=== PATIENT | female | born 1980 | race Caucasian/White ===

== ENCOUNTER 2023-11-23 14:03 | Outpatient (REF) | payer BC, SELFPAY ==
[2023-11-26 13:10] LABS: Age Gdln ACOG Testing Note (.); HPV Aptima Negative (Negative); IGP, Aptima HPV, rfx 16/18,45 Note (.)
== END 2023-11-23 14:04 | disposition home or self-care (01) ==
LOC: LAB 14:03
PROVIDERS: Visit Provider Physician Assistant
DX: Z01.419 Encounter for gynecological examination (general) (routine) without abnormal findings (principal)
CPT/HCPCS: 87624; G0145

== ENCOUNTER 2023-12-06 18:04 | Emergency (ER) | payer BC, SELFPAY ==
[2023-12-06 18:12] VITALS: BP 155/87; PULSE 84; TEMP 37.1; O2SAT 98; BMI 39.5
--- NOTE | 2023-12-06 18:25 | CT_ITS ---
[address] [address] Patient Name: CAITY FARR MRN: [id number] date: 1980 Sex: F Assigned Patient Location: ER Current Patient Location: Accession/Order Number: [id number] Exam Date: 12/06/2023 19:00 Report Date: 12/06/2023 19:55 At the request of: EDI LEE Procedure: CT abdomen pelvis wo con EXAM: CT abdomen pelvis wo con; [id number] REASON FOR EXAM: RLQ abd pain TECHNIQUE: Helical CT images of the abdomen and pelvis were obtained without IV contrast. Multiplanar reformats were generated at the scanner. Dose reduction technique used: Automated exposure control and/or adjustment of the mA and/or kV according to patient size and/or use of iterative reconstruction technique. COMPARISON: None. FINDINGS: Note: Compared with a contrast-enhanced CT exam, noncontrast images are relatively insensitive for detection of solid organ and vascular abnormalities. Visualized Chest: No pleural effusion or any significant pulmonary findings. Abdomen: Liver: Mildly enlarged measuring 20.8 cm (normal up to 18 cm). Gallbladder: No calcified gallstones. No acute inflammatory changes. Bile Ducts: No significant biliary ductal dilatation. Pancreas: No ductal dilatation or inflammatory changes. Spleen: Borderline splenomegaly with the spleen measuring 12 cm (normal up to 12 cm). Adrenals: No nodules. Kidneys: -No stones or hydronephrosis. Vascular: No aortic aneurysm. Lymph Nodes: No adenopathy. Abdominal Wall: Small fat-containing right inguinal hernia. Pelvis: An IUD is present in the uterus. Bowel/Peritoneal Cavity/Mesentery: -No bowel obstruction or significant ileus. -No acute inflammatory changes. -No free air or free fluid. -The appendix has been resected. Musculoskeletal: No acute fracture or suspicious osseous lesion. CT/CT abdomen pelvis wo con IMPRESSION: 1. No acute intra-abdominal abnormality demonstrated. 2. An IUD is present in the uterus. 3. Nonspecific mild hepatomegaly and borderline splenomegaly. Electronically authenticated by: ERICA ROMERO Date: 12/06/2023 19:55
--- NOTE | 2023-12-06 18:26 | ED.ABDPAIN1 ---
HPI - Abdominal Pain General Chief Complaint: Abdominal Pain Stated Complaint: SEVERE ABDOMINAL PAIN Time Seen by Provider: 12/06/23 18:05 Source: patient Mode of arrival: walk-in Limitations: no limitations History of Present Illness HPI narrative: Over the last two days she has been experiencing bloating and abdominal cramping like gas . This afternoon, around 430pm, while standing, she suddenly experienced sharp stabbing pain to the RLQ. Pain went from severe to moderate. She took 800mg ibuprofen. No urinary symptoms. No blood in urine or stool recently. She had appendectomy. No prior history of kidney stones or ovarian cysts. LMP about 2 weeks ago. Related Data Home Medications ?Medication ?Instructions ?Recorded ?Confirmed atogepant 30 mg tablet (Qulipta) 30 mg PO DAILY 12/06/23 12/06/23 citalopram 20 mg tablet 20 mg PO DAILY 12/06/23 12/06/23 methylprednisolone 4 mg tablets in 4 mg PO DAILY 12/06/23 12/06/23 a dose pack Allergies Allergy/AdvReac Type Severity Reaction Status Date / Time No Known Drug Allergies Allergy Verified 12/06/23 18:12 Exam Narrative Exam Narrative: Nurses notes and vital signs reviewed and patient is not hypoxic. afebrile General: Well-appearing and in no apparent distress. Skin: Warm, dry, no pallor noted. No rash to abdomen. Eye: Pupils are equal, round and EOMI. No scleral icterus. Cardiovascular: Regular Rate and Rhythm without murmur, gallop or rub. Respiratory: No accessory muscle use or respiratory distress. Lungs are clear to auscultation, no wheezing, rales or rhonchi Back: No midline thoracic or lumbar vertebral tenderness. No CVA tenderness Musculoskeletal: normal ROM, no calf or popliteal tenderness, no lower extremity edema/swelling GI: Abdomen is soft, non-distended. Normal bowel sounds. No abdominal or adnexal masses appreciated. Focal RLQ tenderness to palpation. No rebound, guarding, or rigidity noted. Neurological: A&O x4. No cranial nerve dysfunction observed. No truncal ataxia. Moves all extremities. Sensation intact. Psychiatric: Cooperative and interactive. Normal mood and affect. Constitutional Vital Signs, click to edit/add: Last Vital Signs Temp 98.7 F 12/06/23 18:12 Pulse 84 12/06/23 18:12 Resp 18 12/06/23 18:12 BP 155/87 H 12/06/23 18:12 Pulse Ox 98 12/06/23 18:12 O2 Del Method Room Air 12/06/23 18:12 Course Vital Signs Vital signs: Vital Signs Temperature 98.7 F 12/06/23 18:12 Pulse Rate 84 12/06/23 18:12 Respiratory Rate 18 12/06/23 18:12 Blood Pressure 155/87 H 12/06/23 18:12 Pulse Oximetry 98 12/06/23 18:12 Oxygen Delivery Method Room Air 12/06/23 18:12 Temperature 98.7 F 12/06/23 18:12 Pulse Rate 84 12/06/23 18:12 Respiratory Rate 18 12/06/23 18:12 Blood Pressure 155/87 H 12/06/23 18:12 Pulse Oximetry 98 12/06/23 18:12 Oxygen Delivery Method Room Air 12/06/23 18:12 MDM - Abdominal Pain MDM Narrative Medical decision making narrative: peripheral iv established, blood and urine ordered to be obtained and sent for testing. CT abd/pelvis without contrast ordered to be obtained. She was given IV Zofran, IV Dilaudid and NS IVF. Patient signed out to Dr Trinh at 7pm shift change with labs and CT results pending. Discharge Plan Discharge Chief Complaint: Abdominal Pain Patient Disposition: Still a Patient Prescriptions / Home Meds: No Action methylprednisolone 4 mg tablets,dose pack 4 mg PO DAILY Qulipta 30 mg tablet 30 mg PO DAILY citalopram 20 mg tablet 20 mg PO DAILY Print Language: [place] Islander Referrals: Physician,Non-Staff, MD [Primary Care Provider] - 1 week
[2023-12-06] MEDS: HYDROMORPHONE HCL 0.5 MG/0.5 ML SYRINGE IV (18:48)
[2023-12-06] MEDS: 0.9 % SODIUM CHLORIDE 1,000 ML 999 ML IV (18:48)
[2023-12-06] MEDS: ONDANSETRON PF 4 MG/2 ML VIAL IV (18:48)
[2023-12-06 19:05] LABS: Basophils Percent Auto 0.3 % (0.2-2.0); Eosinophils Absolute Auto 0.1 10^3/uL (0.0-0.7); Eosinophils Percent Auto 1.1 % (0.9-7.0); Hemoglobin 12.1 g/dL (12.0-16.0); Immature Granulocytes Abs Auto 0.03 10^3/uL (0.00-0.03); Immature Granulocytes Pct Auto 0.3 % (0.0-0.5); Lymphocytes Absolute Auto 1.6 10^3/uL (1.2-3.8); Lymphocytes Percent Auto 18.6 % (20.5-60.0); Mean Corpuscular HGB Conc 31.8 g/dL (29.9-35.2); Mean Corpuscular Hemoglobin 28.5 pg (26.7-34.0); Mean Corpuscular Volume 89.4 fL (81.0-99.0); Mean Platelet Volume 9.7 fL (9.5-13.5); Monocytes Absolute Auto 0.6 10^3/uL (0.3-0.8); Monocytes Percent Auto 7.1 % (1.7-12.0); Neutrophils Absolute Auto 6.3 10^3/uL (1.4-6.5); Neutrophils Percent Auto 72.6 % (43.0-75.0); Platelet Count 273 10^3/uL (150-450); Red Blood Count 4.25 10^6/uL (4.20-5.40); Red Cell Distribution Width 12.3 % (11.0-15.0); White Blood Count 8.7 10^3/uL (4.0-11.0)
[2023-12-06 19:07] LABS: Bilirubin Urine NEGATIVE (NEGATIVE); Blood Urine LARGE (NEGATIVE); Clarity Urine CLEAR (CLEAR); Color Urine LT. YELLOW (YELLOW); Glucose Urine UA NEGATIVE (NEGATIVE); Ketones Urine NEGATIVE (NEGATIVE); Leukocyte Esterase Urine SMALL (NEGATIVE); Nitrite Urine NEGATIVE (NEGATIVE); Protein Urine NEGATIVE (NEG/TRACE); Specific Gravity Urine <=1.005 (1.005-1.025); Urobilinogen Urine 0.2 EU/dL (0.2-1.0)
[2023-12-06 19:08] LABS: Urine Microscopic Indicated YES
[2023-12-06 19:19] LABS: Bacteria Urine TRACE #/HPF (NONE SEEN); Mucus Urine NONE SEEN (NONE SEEN); RBC Urine 0-2 #/HPF (0-2); Squamous Epithelial Cell Urine FEW #/LPF (NONE/RARE)
[2023-12-06 19:20] LABS: Amorphous Sediment Urine RARE; Cast Seen? NONE SEEN #/LPF (NONE SEEN); Crystals Seen? None Seen #/HPF (None Seen); Urine Culture Indicated YES
[2023-12-06 19:24] LABS: Alanine Aminotransferase 15 U/L (14-59); Albumin Level 3.5 g/dL (3.4-5.0); Alkaline Phosphatase 100 U/L (46-116); Anion Gap 13.4; Aspartate Amino Transferase 14 U/L (15-37); BUN Creatinine Ratio 19.1; Bilirubin Total 0.3 mg/dL (0.2-1.0); Calcium 8.4 mg/dL (8.5-10.1); Carbon Dioxide 26.7 mmol/L (21.0-32.0); Chloride 106 mmol/L (98-107); Estimated GFR (African America >60 (>=60); Estimated GFR (Non-African Ame >60 (>=60); Globulin 3.6 g/dL; Glucose 98 mg/dL (74-106); Potassium 4.1 mmol/L (3.5-5.1); Sodium 142 mmol/L (136-145); Total Protein 7.1 g/dL (6.4-8.2)
[2023-12-06] MEDS: HYDROCODONE/ACET 5-325 MG TABLET 2 TAB PO (21:15)
== END 2023-12-06 21:17 | disposition home or self-care (01) ==
PROVIDERS: Emergency Medicine; Emergency Provider Internal Medicine
DX: R10.9 Unspecified abdominal pain (principal); Z97.5 Presence of (intrauterine) contraceptive device; R31.29 Other microscopic hematuria; Z79.899 Other long term (current) drug therapy
CPT/HCPCS: 36415; 74176; 80053; 81001; 83690; 85025; 87086; 96374; 96375; 99285; J1170

== ENCOUNTER 2023-12-09 11:07 | Outpatient (OUT) | payer BC, SELFPAY ==
--- NOTE | 2023-12-09 11:10 | US_ITS ---
[address] [address] Patient Name: CAITY FARR MRN: [id number] date: 1980 Sex: F Assigned Patient Location: [facility] Current Patient Location: [facility] Accession/Order Number: [id number] Exam Date: 12/09/2023 11:12 Report Date: 12/09/2023 15:25 At the request of: JOSÉ MCKAY Procedure: US pelvis transvaginal EXAMINATION: US pelvis transvaginal HISTORY: PELVIC PAIN, IUD PLACEMENT COMPARISON: CT abdomen pelvis 12/06/2023 TECHNIQUE: Transabdominal and/or transvaginal sonographic examination was performed as indicated by examination type. FINDINGS: UTERUS: Normal size and appearance. Uterus size: 9.0 x 4.1 x 5.5 cm ENDOMETRIUM: IUD within endometrial cavity. Normal homogeneous appearance. Endometrial thickness: 7 mm RIGHT OVARY: Not seen. LEFT OVARY: Normal size and appearance. Blood flow present within ovary on color Doppler. Ovary size: 2.1 x 1.7 x 2.2 cm CUL-DE-SAC: Unremarkable. No significant free fluid. BLADDER: Unremarkable. OTHER: None. US/US pelvis transvaginal IMPRESSION: 1. No abnormal or suspicious findings. 2. Unremarkable IUD within endometrial cavity. 3. Left ovary could not be identified. No suspicious left adnexal findings. Electronically authenticated by: YADI ARCE Date: 12/09/2023 15:25
== END 2023-12-09 11:08 | disposition home or self-care (01) ==
LOC: NOMS 11:08
PROVIDERS: Visit Provider Obstetrics & Gynecology
DX: R10.2 Pelvic and perineal pain (principal); Z30.431 Encounter for routine checking of intrauterine contraceptive device
CPT/HCPCS: 76830

== ENCOUNTER 2024-02-24 23:47 | Emergency (ER) | payer BC, SELFPAY ==
[2024-02-25 00:01] VITALS: BP 124/83; PULSE 74; TEMP 36.8; O2SAT 98; BMI 39.5
--- NOTE | 2024-02-25 00:09 | ED.FEMALEGU1 ---
HPI - Female Genitourinary General Chief complaint: Vaginal Bleeding Stated complaint: VAGINAL BLEEDING Time Seen by Provider: 02/24/24 23:52 Source: patient Mode of arrival: walk-in Limitations: no limitations History of Present Illness HPI Narrative: 44-year-old female presents for heavy vaginal bleeding. Her period began yesterday which was normal for her but today it became heavy and she has been passing some clots. This is quite unusual for her and has never happened previously. She has no abdominal pain or cramping. No dizziness chest pain or back pain. An IUD was placed in November, about 2 months ago. Related Data Home Medications ?Medication ?Instructions ?Recorded ?Confirmed atogepant 30 mg tablet (Qulipta) 30 mg PO DAILY 12/06/23 02/25/24 citalopram 20 mg tablet 20 mg PO DAILY 12/06/23 02/25/24 Allergies Allergy/AdvReac Type Severity Reaction Status Date / Time No Known Drug Allergies Allergy Verified 02/25/24 00:03 Review of Systems ROS Narrative A ten point review of systems is negative except as noted above. Exam Narrative Exam Narrative: Nurses note and vital signs reviewed and patient is not hypoxic. General: The patient appears well and in no apparent distress. Patient is resting comfortably on cart. Skin: Warm, dry, no pallor noted. There is no rash noted. Head: Normocephalic, atraumatic Eye: Normal conjunctiva, no drainage Ears, Nose, Mouth, and Throat: oral mucosa is moist. Nares patent. Cardiovascular: Regular Rate and Rhythm Respiratory: Patient is in no distress, no accessory muscle use, lungs are clear to auscultation, no wheezing, rales or rhonchi Back: non-tender GI: Soft and nontender Musculoskeletal: The patient has no evidence of calf tenderness, no pitting edema, symmetrical pulses noted bilaterally Neurological: A&O, normal speech Psychiatric: Cooperative Constitutional Vital Signs, click to edit/add: Last Vital Signs Temp 98.3 F 02/25/24 00:01 Pulse 74 02/25/24 00:01 Resp 18 02/25/24 00:01 BP 124/83 02/25/24 00:01 Pulse Ox 98 02/25/24 00:01 O2 Del Method Room Air 02/25/24 00:01 Course Vital Signs Vital signs: Vital Signs Temperature 98.3 F 02/25/24 00:01 Pulse Rate 74 02/25/24 00:01 Respiratory Rate 18 02/25/24 00:01 Blood Pressure 124/83 02/25/24 00:01 Pulse Oximetry 98 02/25/24 00:01 Oxygen Delivery Method Room Air 02/25/24 00:01 Temperature 98.3 F 02/25/24 00:01 Pulse Rate 74 02/25/24 00:01 Respiratory Rate 18 02/25/24 00:01 Blood Pressure 124/83 02/25/24 00:01 Pulse Oximetry 98 02/25/24 00:01 Oxygen Delivery Method Room Air 02/25/24 00:01 MDM - Female Genitourinary MDM Narrative Medical decision making narrative: Hemoglobin is normal and she is not . She is discharged home and will call Dr. Perez in the morning for appropriate follow-up. Treatment diagnosis and follow-up were discussed with the patient. Differential Diagnosis Differential diagnosis: Likely other (Dysfunctional uterine bleeding, miscarriage, anemia) Lab Data Attestation: I reviewed the patient's lab results. Labs: Lab Results 02/25/24 Range/Units 00:14 WBC 10.1 (4.0-11.0) 10^3/uL RBC 4.21 (4.20-5.40) 10^6/uL Hgb 12.0 (12.0-16.0) g/dL Hct 36.7 (36.0-48.0) % MCV 87.2 (81.0-99.0) fL MCH 28.5 (26.7-34.0) pg MCHC 32.7 (29.9-35.2) g/dL RDW 12.6 (11.0-15.0) % Plt Count 246 (150-450) 10^3/uL MPV 9.2 L (9.5-13.5) fL Neut % (Auto) 72.8 (43.0-75.0) % Lymph % (Auto) 17.9 L (20.5-60.0) % [place] % (Auto) 7.6 (1.7-12.0) % Eos % (Auto) 0.9 (0.9-7.0) % Baso % (Auto) 0.4 (0.2-2.0) % Neut # (Auto) 7.3 H (1.4-6.5) 10^3/uL Lymph # (Auto) 1.8 (1.2-3.8) 10^3/uL [place] # (Auto) 0.8 (0.3-0.8) 10^3/uL Eos # (Auto) 0.1 (0.0-0.7) 10^3/uL Baso # (Auto) 0.0 (0.0-0.1) 10^3/uL Abs Immat Gran (auto) 0.04 H (0.00-0.03) 10^3/uL Imm/Tot Granulo (auto) 0.4 (0.0-0.5) % Sodium 142 (136-145) mmol/L Potassium 3.9 (3.5-5.1) mmol/L Chloride 105 (98-107) mmol/L Carbon Dioxide 27.8 (21.0-32.0) mmol/L Anion Gap 13.1 BUN 14.0 (7.0-18.0) mg/dL Creatinine 0.93 (0.55-1.02) mg/dL Est GFR ( Amer) >60 (>=60) Est GFR (Non-Af Amer) >60 (>=60) BUN/Creatinine Ratio 15.1 Glucose 99 (74-106) mg/dL Calcium 8.8 (8.5-10.1) mg/dL Serum HCG, Qual Negative (NEGATIVE) Discharge Plan Discharge Stand Alone Forms: Portal Instructions Chief Complaint: Vaginal Bleeding Clinical Impression: Dysfunctional uterine bleeding Patient Disposition: Home, Self-Care Time of Disposition Decision: 00:52 Condition: Good Mode of Transportation: Private Vehicle Prescriptions / Home Meds: No Action Qulipta 30 mg tablet 30 mg PO DAILY citalopram 20 mg tablet 20 mg PO DAILY Print Language: Gu[place]ian Instructions: Abnormal (Dysfunctional) Uterine Bleeding (ED) Additional Instructions: Call Dr. Perez in the morning Referrals: Vj Perez DO [Physician] - 1 week Physician,Non-Staff, [Primary Care Provider] - 1 week
[2024-02-25 00:22] LABS: Basophils Percent Auto 0.4 % (0.2-2.0); Eosinophils Absolute Auto 0.1 10^3/uL (0.0-0.7); Eosinophils Percent Auto 0.9 % (0.9-7.0); Hematocrit 36.7 % (36.0-48.0); Immature Granulocytes Abs Auto 0.04 10^3/uL (0.00-0.03); Immature Granulocytes Pct Auto 0.4 % (0.0-0.5); Lymphocytes Absolute Auto 1.8 10^3/uL (1.2-3.8); Lymphocytes Percent Auto 17.9 % (20.5-60.0); Mean Corpuscular HGB Conc 32.7 g/dL (29.9-35.2); Mean Corpuscular Hemoglobin 28.5 pg (26.7-34.0); Mean Corpuscular Volume 87.2 fL (81.0-99.0); Mean Platelet Volume 9.2 fL (9.5-13.5); Monocytes Absolute Auto 0.8 10^3/uL (0.3-0.8); Monocytes Percent Auto 7.6 % (1.7-12.0); Neutrophils Absolute Auto 7.3 10^3/uL (1.4-6.5); Neutrophils Percent Auto 72.8 % (43.0-75.0); Platelet Count 246 10^3/uL (150-450); Red Blood Count 4.21 10^6/uL (4.20-5.40); Red Cell Distribution Width 12.6 % (11.0-15.0); White Blood Count 10.1 10^3/uL (4.0-11.0)
[2024-02-25 00:28] LABS: Anion Gap 13.1; BUN Creatinine Ratio 15.1; Calcium 8.8 mg/dL (8.5-10.1); Carbon Dioxide 27.8 mmol/L (21.0-32.0); Chloride 105 mmol/L (98-107); Estimated GFR (African America >60 (>=60); Estimated GFR (Non-African Ame >60 (>=60); Glucose 99 mg/dL (74-106); Potassium 3.9 mmol/L (3.5-5.1); Sodium 142 mmol/L (136-145)
[2024-02-25 00:32] LABS: HCG Qualitative NEGATIVE (NEGATIVE); Internal Control Within Normal Limits
[2024-02-25 00:57] VITALS: BP 135/87; PULSE 72; O2SAT 99
== END 2024-02-25 00:57 | disposition home or self-care (01) ==
PROVIDERS: Emergency Provider Emergency Medicine
DX: N93.8 Other specified abnormal uterine and vaginal bleeding (principal); Z97.5 Presence of (intrauterine) contraceptive device
CPT/HCPCS: 36415; 80048; 84703; 85025; 99283

== ENCOUNTER 2024-05-03 10:38 | Outpatient (OUT) | payer BC, SELFPAY ==
--- NOTE | 2024-05-03 10:39 | US_ITS ---
The [address] [address] Patient Name: CAITY FARR MRN: [id number] date: 1980 Sex: F Assigned Patient Location: [facility] Current Patient Location: [facility] Accession/Order Number: [id number] Exam Date: 05/03/2024 10:45 Report Date: 05/03/2024 12:24 At the request of: JOSÉ MCKAY Procedure: US pelvis transvaginal EXAMINATION: US pelvis transvaginal HISTORY: Menorrhagia with regular cycle N92.0 COMPARISON: Ultrasound pelvis 12/09/2023 TECHNIQUE: Transabdominal and/or transvaginal sonographic examination was performed as indicated by examination type. FINDINGS: UTERUS: Normal size and appearance. Uterus size: 9.4 x 6.1 x 4.0 cm ENDOMETRIUM: Normal homogeneous appearance. IUD within endometrial cavity. Endometrial thickness: 5 mm RIGHT OVARY: Not seen. No suspicious adnexal findings. LEFT OVARY: Not well seen but grossly normal size and appearance. Duplex Doppler demonstrates normal waveform and flow; resistive index 0.7. Ovary size: 3.7 x 2.6 x 2.8 cm CUL-DE-SAC: Unremarkable. No significant free fluid. BLADDER: Unremarkable. OTHER: None. US/US pelvis transvaginal IMPRESSION: 1. IUD within endometrial cavity appearing to be in good position. 2. Otherwise unremarkable uterus and endometrium. Electronically authenticated by: YADI ARCE Date: 05/03/2024 12:24
== END 2024-05-03 10:39 | disposition home or self-care (01) ==
LOC: NOMS 10:39
PROVIDERS: Visit Provider Obstetrics & Gynecology
DX: N92.0 Excessive and frequent menstruation with regular cycle (principal); Z97.5 Presence of (intrauterine) contraceptive device
CPT/HCPCS: 76830

== ENCOUNTER 2024-05-29 13:47 | Outpatient (OUT) | payer BC, SELFPAY ==
--- OUTSIDE RECORDS SUMMARY | 2024-06-01 14:04 | XMS_ITS | CCD ---
Author Organization [facility] Care Team Providers Care Medical Lab Technician Name Role Phone Gillian Matson Unavailable NELY ., DR KUMAR Admitting Unavailable NELY ., DR KUMAR Attending Unavailable FALLON, DR JAYDE Winchester Consulting Unavailable NELY ., DR KUMAR Consulting Unavailable KAILASH JEFFERSON Referring Unavailable DELA CRUZ, ROSALBA J Primary Care Unavailable MOORE, EVELYN N Attending Unavailable DELA CRUZ, ROSALBA J Referring Unavailable DELA CRUZ, ROSALBA J Primary Care Unavailable MOORE, EVELYN N Referring Unavailable DELA CRUZ, ROSALBA J Primary Care Unavailable MOORE, EVLEYN N Attending Unavailable DELA CRUZ, ROSALBA J Referring Unavailable DELA CRUZ, ROSALBA J Primary Care Unavailable ALMITA CRUZ Attending Unavailable JOSÉ PEREZ Attending Unavailable JOSÉ PEREZ Attending Unavailable JOSÉ PEREZ Attending Unavailable FESTUS ROD Attending Unavailable JOSÉ PEREZ Attending Unavailable JOSÉ PEREZ Attending Unavailable Nelly Fishman Primary Care Unavailable José Perez Attending Unavailable José Perez Admitting Unavailable DO Nelly Fishman Primary Care Provider DO José Perez Attending Provider [phone] Medications Current Medications Medication Drug Class(es) Dates Sig (Normalized) Sig (Original) Ajovy (1 source) Ajovy Active amoxicillin 875 mg oral tablet (1 source) Penicillin-class Antibacterial Start: 06-25-2022 take 1 tablet by mouth every twelve hours Amoxicillin 875 MG 1 tablet Orally every 12 hrs for 7 days May, Active citalopram 20 mg oral tablet (2 sources) Serotonin Reuptake Inhibitor take 1 tablet by mouth every twenty-four hours Citalopram Hydrobromide 20 MG 1 tablet Orally Once a day Active Citalopram Sassafras bromide Active 1.5 ml fremanezumab-vfrm 150 mg/ml prefilled syringe (1 source) inject 1.5 mL by subcutaneous injection every month Ajovy 225 MG/1.5ML 1.5 mL Subcutaneous MONTHLY Active meloxicam 15 mg oral tablet (2 sources) Nonsteroidal Anti-inflammatory Drug take 1 tablet by mouth every twenty-four hours Meloxicam 15 MG 1 tablet Orally Once a day Active Meloxicam Active methylPREDNISolone 4 mg oral tablet (1 source) Corticosteroid Start: 08-29-2022 methylPREDNISo lone 4 MG as directed Orally Once a day for 6 days Jul, Active Problems Problem Classification Problem Date Documented Date Episodic/Chronic Immunizations and screening for infectious disease (4 sources) Contact with and (suspected) exposure to other viral communicable diseases; Translations: [Contact with and (suspected) exposure to other viral communicable diseases] Episodic Other connective tissue disease (2 sources) Pain in left foot; Translations: [Pain in left foot] Onset: 02-19-2024 Episodic Other connective tissue disease (1 source) Fibromyalgia; Translations: [Fibromyalgia] Onset: 04-05-2024 Episodic Other screening for suspected conditions (not mental disorders or infectious disease) (4 sources) Encounter for screening mammogram for malignant neoplasm of breast; Translations: [ENC SCR MAMMO MALIG NEOPLASM BREAST] Onset: 11-09-2022 Episodic Other upper respiratory infections (1 source) Streptococcal pharyngitis Episodic Otitis media and related conditions (1 source) Unspecified nonsuppurative otitis media, right ear Episodic Results Test Name Value Interpretation Reference Range Facility CBC AND AUTO DIFFon 04-05-20 24 ABSOLUTE BASOPHIL 0.0 X10E9/L Normal 0.0-0.2 [facility] Comment on above: Performed By: #### C MP, 1987-5, 3016-3, CBCA, 2132-9, 51477-7, 60189-4 #### [facility] ([id number]) [address], [address] [place] [address] ABSOLUTE NEUTROPHIL 5.7 X10E9/L Normal 1.5-6.6 [facility] Comment on above: Performed By: #### C BRIA, 1987-12, 3015-10, CBCA, 2132-04, 59758-6, 69634-7 #### [facility] ([id number]) [address], [address] [place] [address] Basophils/100 WBC (Bld) 0.4 % Normal [facility] Comment on above: Performed By: #### C BRIA, 1987-12, 3015-10, CBCA, 2132-04, 19230-3, 28952-8 #### [facility] ([id number]) [address], [address] [place] [address] Eosinophils (Bld) [#/Vol] 0.0 10*3/uL Normal 0.0-0.4 [facility] Comment on above: Performed By: #### C BRIA, 1987-12, 3015-10, CBCA, 2132-04, 59617-8, 64516-1 #### [facility] ([id number]) [address], [address] [place] [address] Eosinophils/100 WBC (Bld) 0.6 % Normal [facility] Comment on above: Performed By: #### C BRIA, 1987-12, 3015-10, CBCA, 2132-04, 04521-8, 64616-9 #### [facility] ([id number]) [address], [address] [place] [address] Erythrocyte distribution width (RBC) [Ratio] 13.2 % Normal 11.5-15.0 [facility] Comment on above: Performed By: #### C BRIA, 1987-12, 3015-10, CBCA, 2132-04, , 09653-7 #### [facility] ([id number]) [address], [address] [place] [address] Hematocrit (Bld) [Volume fraction] 37.7 % Normal 35-47 [facility] Comment on above: Performed By: #### C BRIA, 1987-12, 3015-10, CBCA, 2132-04, 18957-1, 13407-7 #### [facility] ([id number]) [address], [address] [place] [address] Hemoglobin (Bld) [Mass/Vol] 12.6 g/dL Normal 11.7-15.5 [facility] Comment on above: Performed By: #### C BRIA, 1987-12, 3015-10, CBCA, 2132-04, 21883-1, 65588-5 #### [facility] ([id number]) [address], [address] [place] [address] Lymphocytes (Bld) [#/Vol] 1.3 10*3/uL Normal 1.0-3.5 [facility] Comment on above: Performed By: #### C BRIA, 1987-12, 3015-10, CBCA, 2132-04, 10609-8, 80958-5 #### [facility] ([id number]) [address], [address] [place] [address] Lymphocytes/100 WBC (Bld) 17.9 % Normal [facility] Comment on above: Performed By: #### C BRIA, 1987-12, 3015-10, CBCA, 2132-04, 57218-4, 41476-7 #### [facility] ([id number]) [address], [address] [place] [address] MCH (RBC) [Entitic mass] 28.8 pg Normal 27-34 [facility] Comment on above: Performed By: #### C BRIA, 1987-12, 3015-10, CBCA, 2132-04, 69680-5, 68409-6 #### [facility] ([id number]) [address], [address] [place] [address] MCHC (RBC) [Mass/Vol] 33.3 g/dL Normal 32-36 [facility] Comment on above: Performed By: #### C BRIA, 1987-12, 3015-10, CBCA, 2132-04, 45237-6, 17905-6 #### [facility] ([id number]) [address], [address] [place] [address] MCV (RBC) [Entitic vol] 86 fL Normal 80-100 [facility] Comment on above: Performed By: #### C BRIA, 1987-12, 3015-10, CBCA, 2132-04, 71773-1, 07521-1 #### [facility] ([id number]) [address], [address] [place] [address] Monocytes (Bld) [#/Vol] 0.4 10*3/uL Normal 0-0.9 [facility] Comment on above: Performed By: #### C BRIA, 1987-12, 3015-10, CBCA, 2132-04, 64032-3, 16112-1 #### [facility] ([id number]) [address], [address] [place] [address] Monocytes/100 WBC (Bld) 5.4 % Normal [facility] Comment on above: Performed By: #### C BRIA, 1987-12, 3015-10, CBCA, 2132-04, 54022-9, 54178-2 #### [facility] ([id number]) [address], [address] [place] [address] Neutrophils/100 WBC (Bld) 75.7 % Normal [facility] Comment on above: Performed By: #### C BRIA, 1987-12, 3015-10, CBCA, 2132-04, 65817-3, 02314-2 #### [facility] ([id number]) [address], [address] [place] [address] Platelet mean volume (Bld) [Entitic vol] 7.9 fL Normal 7-12 [facility] Comment on above: Performed By: #### C BRIA, 1987-12, 3015-10, CBCA, 2132-04, 87839-8, 79883-6 #### [facility] ([id number]) [address], [address] [place] [address] Platelets (Bld) [#/Vol] 281 10*3/uL Normal 150-450 [facility] Comment on above: Performed By: #### C BRIA, 1987-12, 3015-10, CBCA, 2132-04, 04670-5, 19575-0 #### [facility] ([id number]) [address], [address] [place] [address] RBC COUNT 4.37 X10E12/L Normal 3.80-5.20 [facility] Comment on above: Performed By: #### C BRIA, 1987-12, 3015-10, CBCA, 2132-04, 64276-6, 89351-1 #### [facility] ([id number]) [address], [address] [place] [address] WBC (Bld) [#/Vol] 7.5 10*3/uL Normal 4.0-11.0 [facility] Comment on above: Performed By: #### C BRIA, 1987-12, 3015-10, CBCA, 2132-04, 78420-3, 21585-2 #### [facility] ([id number]) [address], [address] [place] [address] COMPREHENSIVE METABOLIC PANE Cristian 04-05-2024 Albumin [Mass/Vol] 4.3 g/dL Normal 3.2-5.3 [facility] Comment on above: Performed By: #### C BRIA, 1987-12, 3015-10, CBCA, 2132-04, 86906-4, 30034-9 #### [facility] ([id number]) [address], [address] [place] [address] ALP [Catalytic activity/Vol] 92 U/L Normal 39-130 [facility] Comment on above: Performed By: #### C BRIA, 1987-12, 3015-10, CBCA, 2132-04, 11434-1, 49926-6 #### [facility] ([id number]) [address], [address] [place] [address] ALT [Catalytic activity/Vol] 20 U/L Normal 0-31 [facility] Comment on above: Performed By: #### C BRIA, 1987-12, 3015-10, CBCA, 2132-04, 89546-2, 39394-3 #### [facility] ([id number]) [address], [address] [place] [address] Anion gap [Moles/Vol] 10 mmol/L Normal 5-15 [facility] Comment on above: Performed By: #### C BRIA, 1987-12, 3015-10, CBCA, 2132-04, 35065-3, 80153-7 #### [facility] ([id number]) [address], [address] [place] [address] AST [Catalytic activity/Vol] 21 U/L Normal 0-41 [facility] Comment on above: Performed By: #### C BRIA, 1987-12, 3015-10, CBCA, 2132-04, 42016-0, 41713-6 #### [facility] ([id number]) [address], [address] [place] [address] Bilirubin [Mass/Vol] 0.4 mg/dL Normal 0.3-1.2 [facility] Comment on above: Performed By: #### C BRIA, 1987-12, 3015-10, CBCA, 2132-04, 62171-9, 77370-5 #### [facility] ([id number]) [address], [address] [place] [address] Calcium [Mass/Vol] 9.1 mg/dL Normal 8.5-10.5 [facility] Comment on above: Performed By: #### C BRIA, 1987-12, 3015-10, CBCA, 2132-04, 93436-3, 56440-1 #### [facility] ([id number]) [address], [address] [place] [address] Chloride [Moles/Vol] 103 mmol/L Normal 98-109 [facility] Comment on above: Performed By: #### C BRIA, 1987-12, 3015-10, CBCA, 2132-04, 89433-3, 54373-8 #### [facility] ([id number]) [address], [address] [place] [address] CO2 [Moles/Vol] 27 mmol/L Normal 22-32 [facility] Comment on above: Performed By: #### C BRIA, 1987-12, 3015-10, CBCA, 2132-04, 27158-2, 75996-6 #### [facility] ([id number]) [address], [address] [place] [address] Creatinine [Mass/Vol] 0.85 mg/dL Normal 0.40-1.00 [facility] Comment on above: Result Comment: METH OD TRACEABLE TO IDMS STANDARD Performed By: #### C BRIA, 1987-12, 3015-10, CBCA, 2132-04, 97103-4, 70794-2 #### [facility] ([id number]) [address], [address] [place] [address] GFR/1.73 sq M.predicted among non-blacks MDRD (S/P/Bld) [Vol rate/Area] 87 mL/min/{1.73_m2} Normal >59 [facility] Comment on above: Result Comment: Reported eGFR is based on the CKD-EPI 2020 equation that does not use a race coefficient. Performed By: #### C BRIA, 1987-12, 3015-10, CBCA, 2132-04, 60580-8, 52461-9 #### [facility] ([id number]) [address], [address] [place] [address] Glucose [Mass/Vol] 88 mg/dL Normal 65-99 [facility] Comment on above: Performed By: #### C BRIA, 1987-12, 3015-10, CBCA, 2132-04, 02384-1, 31883-6 #### [facility] ([id number]) [address], [address] [place] [address] Potassium [Moles/Vol] 4.0 mmol/L Normal 3.5-5.0 [facility] Comment on above: Performed By: #### C BRIA, 1987-12, 3015-10, CBCA, 2132-04, 40005-0, 11833-3 #### [facility] ([id number]) [address], [address] [place] [address] Protein [Mass/Vol] 7.1 g/dL Normal 6.0-8.0 [facility] Comment on above: Performed By: #### C BRIA, 1987-12, 3015-10, CBCA, 2132-04, 20941-2, 96383-4 #### [facility] ([id number]) [address], [address] [place] [address] Sodium [Moles/Vol] 140 mmol/L Normal 134-146 [facility] Comment on above: Performed By: #### Shawna FRASER, 1987-12, 3015-10, CBCA, 2132-04, 05039-4, 24071-2 #### [facility] ([id number]) [address], [address] [place] [address] Urea nitrogen [Mass/Vol] 15 mg/dL Normal 5-23 [facility] Comment on above: Performed By: #### Shawna FRASER, 1987-12, 3015-10, CBCA, 2132-04, 94713-7, 46270-1 #### [facility] ([id number]) [address], [address] [place] [address] CRP [Mass/Vol]on 04-05-2024 C REACTIVE PROTEIN 1.0 mg/dL High 0.000-0.744 [facility] Comment on above: Performed By: #### C BRIA, 1987-12, 3, CBCA, 2132-04, 28093-0, 83272-0 #### [facility] ([id number]) [address], [address] [place] [address] ESR Photometric method (Bld) [Velocity]on 04-05-2024 ESR, ERYTHROCYTE SEDIMENTATION RATE 22 mm/h High 0-20 [facility] Comment on above: Performed By: #### C BRIA, 1987-12, 3015-10, CBCA, 2132-04, 55496-3, 14181-4 #### [facility] ([id number]) [address], [address] [place] [address] TSH Qnon 04-05-2024 TSH 1.95 uIU/mL Normal 0.49-4.67 [facility] Comment on above: Performed By: #### Shawna FRASER, 1987-12, 3015-10, CBCA, 2132-04, 37877-0, 85305-1 #### [facility] ([id number]) [address], [address] [place] [address] VITAMIN B12on 04-05-2024 Cobalamin (Vitamin B12) [Mass/Vol] 224 pg/mL Normal 180-914 [facility] Comment on above: Performed By: #### Shawna FRASER, 1987-12, 3015-10, CBCA, 2132-04, 92440-9, 75040-0 #### [facility] ([id number]) [address], [address] [place] [address] Vitamin D+Metabolites [Mass/ Vol]on 04-05-2024 VITAMIN D 25 HYD TOT 18.4 ng/mL Low 30-100 [facility] Comment on above: Result Comment: Vitamin D status 25 [place] Vitamin D Deficiency <20 ng/mL Insufficiency 20-29 ng/mL Sufficiency 30-100 ng/mL Toxicity >100 ng/mL NOTE: A pediatric reference range has not been established by the chemical dependency attendant of this kit. The [place] [employer] recommends a Vitamin D level of = or >20ng/mL in infants and children. Performed By: #### C MP, 1987-, 3016-3, CBCA, 2132-04, 76585-6, 39995-8 #### [facility] ([id number]) [address] [place] [address], [address] [place] [address] B. burgdorferi IgG+IgM Qn (S )on 02-19-2024 LYME TOTAL <0.2 Normal <0.9 [facility] Comment on above: Result Comment: Interpretation-------- <0.9 Negative 0.9 - 1.0 Equivocal >1.0 Positive No serological evidence of Borrelia infection.A non-reactive result does not exclude the possibility of Borrelia infection and cannot exclude early infection with B.burgdorferi. If Lyme borreliosis is suspected, a second sample should be collected and tested 2-4 weeks later. Performed By: #### C BCA, 31512-8, 84952-9, 1987-12, 3084-1, 91118-3, 49512-0, 20802-9 #### [facility] ([id number]) [address] [place] [address], [address] [place] [address] CBC AND AUTO DIFFon 02-19-20 24 ABSOLUTE BASOPHIL 0.0 X10E9/L Normal 0.0-0.2 [facility] Comment on above: Performed By: #### C EJ, 13524-2, 46474-0, 1987-12, 308-1, 94018-3, 24825-6, 18433-1 #### [facility] ([id number]) [address], [address] [place] [address] ABSOLUTE NEUTROPHIL 4.1 X10E9/L Normal 1.5-6.6 [facility] Comment on above: Performed By: #### Shawna PAGAN, 93280-9, , 1987-12, 3083-, 69755-4, 11018-4, 84437-1 #### [facility] ([id number]) [address], [address] [place] [address] Basophils/100 WBC (Bld) 0.3 % Normal [facility] Comment on above: Performed By: #### Shawna PAGAN, 71091-3, , 1987-12, 3083-, 30233-1, 22253-7, 87385-9 #### [facility] ([id number]) [address], [address] [place] [address] Eosinophils (Bld) [#/Vol] 0.1 10*3/uL Normal 0.0-0.4 [facility] Comment on above: Performed By: #### Shawna PAGAN, 62211-5, 87278-8, 1987-12, 3083-, 15322-1, 30027-3, 74549-2 #### [facility] ([id number]) [address], [address] [place] [address] Eosinophils/100 WBC (Bld) 1.1 % Normal [facility] Comment on above: Performed By: #### Shawna PAGAN, 79743-6, 73278-1, 1987-12, 308-, 19287-9, 96164-0, 56125-9 #### [facility] ([id number]) [address], [address] [place] [address] Erythrocyte distribution width (RBC) [Ratio] 13.4 % Normal 11.5-15.0 [facility] Comment on above: Performed By: #### Shawan PAGAN, 01593-0, 13033-8, 1987-12, 3083-, 12717-7, 60271-8, 45267-1 #### [facility] ([id number]) [address], [facility] [address] [place] [address] Hematocrit (Bld) [Volume fraction] 39.2 % Normal 35-47 [facility] Comment on above: Performed By: #### Shawna PAGAN, 26295-2, , 1987-12, 3083-, 73631-7, 78213-9, 19148-0 #### [facility] ([id number]) [address] [place] [address] Hemoglobin (Bld) [Mass/Vol] 12.9 g/dL Normal 11.7-15.5 [facility] Comment on above: Performed By: #### Shawna PAGAN, 89543-3, , 1987-12, 3083-08, 91837-0, 81130-6, 67912-8 #### [facility] ([id number]) [address] [address] Lymphocytes (Bld) [#/Vol] 1.3 10*3/uL Normal 1.0-3.5 [facility] Comment on above: Performed By: #### Shawna PAGAN, 80386-0, , 1987-12, 3083-, 73845-5, 42094-1, 62392-4 #### [facility] ([id number]) [address] [place] [address] Lymphocytes/100 WBC (Bld) 21.8 % Normal [facility] Comment on above: Performed By: #### Shawna PAGAN, 63235-9, , 1987-12, 3084-1, 10033-6, 39676-6, 52177-2 #### [facility] ([id number]) [address], [address] [place] [address] MCH (RBC) [Entitic mass] 28.7 pg Normal 27-34 [facility] Comment on above: Performed By: #### Shawna PAGAN, 07066-3, 16568-0, 1987-12, 3083-, 61862-2, 92825-2, 94841-1 #### [facility] ([id number]) [address], [address] [place] [address] MCHC (RBC) [Mass/Vol] 33.0 g/dL Normal 32-36 [facility] Comment on above: Performed By: #### Shawna PAGAN, 82735-6, 20977-7, 1987-12, 3083-, 63342-3, 05729-0, 81362-1 #### [facility] ([id number]) [address], [address] [place] [address] MCV (RBC) [Entitic vol] 87 fL Normal 80-100 [facility] Comment on above: Performed By: #### Shawna PAGAN, 05009-6, 19127-6, 1987-12, 3083-, 60188-7, 88793-5, 37584-9 #### [facility] ([id number]) [address], [address] [place] [address] Monocytes (Bld) [#/Vol] 0.4 10*3/uL Normal 0-0.9 [facility] Comment on above: Performed By: #### Shawna PAGAN, 69339-2, 71096-0, 1987-12, 3083-, 81188-0, 89725-2, 25804-0 #### [facility] ([id number]) [address], [address] [place] [address] Monocytes/100 WBC (Bld) 6.7 % Normal [facility] Comment on above: Performed By: #### Shawna PAGAN, 21109-1, 54223-4, 1987-12, 3084-1, 20950-6, 96644-9, 39049-5 #### [facility] ([id number]) [address], [address] [place] [address] Neutrophils/100 WBC (Bld) 70.1 % Normal [facility] Comment on above: Performed By: #### Shawna PAGAN, 72305-4, 13014-8, 1987-12, 308-1, 75292-3, 77452-3, 67355-8 #### [facility] ([id number]) [address], [address] [place] [address] Platelet mean volume (Bld) [Entitic vol] 8.2 fL Normal 7-12 [facility] Comment on above: Performed By: #### Shawna PAGAN, 04110-2, 71764-2, 1987-12, 308-1, 88244-7, 21366-1, 51406-0 #### [facility] ([id number]) [address], [address] [place] [address] Platelets (Bld) [#/Vol] 232 10*3/uL Normal 150-450 [facility] Comment on above: Performed By: #### Shawna PAGAN, 32140-0, 39213-2, 1987-12, 308-1, 85864-2, 40734-1, 34690-2 #### [facility] ([id number]) [address], [address] [place] [address] RBC COUNT 4.51 X10E12/L Normal 3.80-5.[address] [facility] Comment on above: Performed By: #### Shawna PAGAN, 58049-1, 06723-9, 1987-12, 3084-1, 14859-5, 15267-8, 06905-2 #### [facility] ([id number]) [address], [address] [place] [address] WBC (Bld) [#/Vol] 5.9 10*3/uL Normal 4.0-11.0 [facility] Comment on above: Performed By: #### Shawna PAGAN, 44033-2, 41606-8, 1987-12, 308-1, 67623-7, 38451-4, 70985-1 #### [facility] ([id number]) [address], [address] [place] [address] CRP [Mass/Vol]on 02-19-2024 C REACTIVE PROTEIN 0.9 mg/dL High 0.000-0.744 [facility] Comment on above: Performed By: #### Shawna PAGAN, 06564-7, 76578-4, 1987-12, 3083-1, 33995-9, 23461-0, 57402-0 #### [facility] ([id number]) [address] [place] [address] ESR Photometric method (Bld) [Velocity]on 02-19-2024 ESR, ERYTHROCYTE SEDIMENTATION RATE 26 mm/h High 0-20 [facility] Comment on above: Performed By: #### Shawna PAGAN, 73231-0, 17067-3, 1987-12, 3083-1, 31652-0, 76306-7, 26317-7 #### [facility] ([id number]) [address], [address] [place] [address] HLA-B27 FC Ql (Bld/Tiss)on 0 02-19-2024 HLA-B27 TYPING Positive Normal [facility] Comment on above: Performed By: #### Shawna PAGAN, 99539-1, 24809-0, 1987-12, 3083-1, 77410-7, 60334-8, 37868-9 #### [facility] ([id number]) [address] [place] [address] Nuclear Ab IA Ql (S)on 02-18 LANIE Screen w/reflex Negative Normal NEG [facility] Comment on above: Result Comment: Testing performed using multiplex flow immunoassay. Eleven different antigens associated with systemic autoimmune diseases (dsDNA,Sm,Sm/PELLETIZER TENDER,PELLETIZER TENDER,Chromatin, SSA,SSB,Nikki-1,Scl70,Ribo P,Centromere B) are included in this screening test. Performed By: #### C EJ, 39242-7, 28247-9, 1987-, 308-1, 30999-9, 46060-4, 82656-7 #### [facility] ([id number]) [address], [address] [place] [address] Rheumatoid factor Nephelomet ry Qn (S)on 02-19-2024 RHEUMATOID FACTOR <10 Normal <20 [facility] [facility] Comment on above: Performed By: #### Shawna PAGAN, 92905-3, 45899-0, 1987-12, 3083-1, 49383-1, 18846-0, 74487-4 #### [facility] ([id number]) [address], [address] [place] [address] URIC ACIDon 02-19-2024 Urate [Mass/Vol] 5.5 mg/dL Normal 2.6-7.2 [facility] Comment on above: Performed By: #### Shawna PAGAN, 34373-4, 17804-9, 1987-12, 3084-1, 75686-1, 57241-1, 45673-3 #### [facility] ([id number]) [address], [address] [place] [address] MG MAMM SCREEN 3D VANDANA CADon 11-09-2022 MG MAMM SCREEN 3D VANDANA CAD Patient: CAITY FARR Exam Date: 11/09/2022 : 1980 Gender:F Ordering : DR JOSÉ PEREZ . Admission #: [id number] Family : Order #: [id number] CLICK HERE TO VIEW EXAM RADIOLOGY REPORT PROCEDURE: MAMMOGRAM SCREENING 3D BILATERAL CAD COMPARISON: MG MAMM SCREEN 3D VANDANA CAD, 08/15/2021. INDICATIONS: Screening mammography Calculator Name NCI Breast Cancer Risk Assessment Tool 5 Year Breast Cancer Risk Not Reported. Lifetime Breast Cancer Risk Not Reported. Personal Breast Cancer No Personal Ovarian Cancer No Treatments None Family Cancers None LOCATION: [facility] BREAST COMPOSITION: Almost entirely fatty. FINDINGS: DIAGNOSTIC CATEGORY 1--NEGATIVE. NO CHANGE FROM COMPARISON ASSESSMENT. Scattered benign-appearing calcifications are present. Scattered benign-appearing lymph nodes are present. RIGHT BREAST: No significant suspicious finding. LEFT BREAST: No significant suspicious finding. RECOMMENDATIONS: ROUTINE MAMMOGRAM AND CLINICAL EVALUATION IN 12 MONTHS. PLEASE NOTE: A NORMAL MAMMOGRAM DOES NOT EXCLUDE THE POSSIBILITY OF BREAST CANCER. A CLINICALLY SUSPICIOUS PALPABLE LUMP SHOULD BE BIOPSIED. Dictated by: Jayde Valles MD on 11/09/2022 at 13:55 Approved by: Jayde Valles MD on 11/09/2022 at 13:56 Normal [facility] COVID/FLU/RSV RT-PCRon 08-29 SARS-CoV-2 (COVID-19) RNA BERNABE+probe Ql (Unsp spec) Negative [facility] Other COVID/FLU/RSV RT-PCR Negative [facility] Other Quick Strepon 06-25-2022 S. pyogenes Org specific cx Ql (Throat) Positive [facility] Other Quick Strep [facility] Other SARS-CoV-2 (COVID-19) RNA NA A+probe Ql (Resp)on 06-25-2022 SARS-CoV-2 (COVID-19) RNA BERNABE+probe Ql (Unsp spec) Negative [facility] Other MRI Foot w/o Lefton 06-18-20 MRI Foot w/o Left CLINICAL HISTORY: Heel and arch pain for 1 year. Plantar fasciitis. Inflammatory pain of left heel. COMPARISON: Radiographs 12/24/2021 TECHNIQUE: MRI of the hindfoot was performed without contrast. FINDINGS: The Achilles tendon is intact. Thickening of the medial cord plantar fascia with thickness measuring up to 7 mm. Mild adjacent soft tissue edema. Small plantar calcaneal enthesophyte. Musculature appears normal. Tibialis posterior, flexor digitorum longus, and flexor hallucis longus tendons are intact. Peroneus longus and brevis tendons are intact. Extensor tendons are intact. The anterior and posterior tibiofibular ligaments are intact. The anterior talofibular ligament, calcaneofibular ligament, and posterior talofibular ligament are intact. Superficial and deep fibers of the deltoid ligament are intact. Spring ligament is intact. Sinus tarsi fat is preserved. Lisfranc ligament appears intact. No acute fracture or evidence of stress reaction. No well-defined or measurable articular cartilage defect or subchondral bone marrow edema of the tibial plafond, talar dome, or subtalar joint. IMPRESSION: Findings compatible with plantar fasciitis. Report reported and signed by Tanvir Ochoa on 06/18/2022 1353 Normal [facility] Vital Signs Date Time Vital Sign Value Performing Clinician Facility 08-29-2022 12:45-0500 Body height 172.72 cm Gillian Matson Other [facility] Other 08-29-2022 12:45-0500 Body mass index (BMI) [Ratio] 39.56 kg/m2 Gillian Matson Other [facility] Other 08-29-2022 12:45-0500 Body temperature 98.6 [degF] Gillian Matson Other [facility] Other 08-29-2022 12:45-0500 Body weight 118.03 kg Gillian Matson Other [facility] Other 08-29-2022 12:45-0500 Diastolic blood pressure 67 mm[Hg] Gillian Matson Other [facility] Other 08-29-2022 12:45-0500 Respiratory rate 18 /min Gillian Matson Other [facility] Other 08-29-2022 12:45-0500 SaO2% (BldA) [Mass fraction] 98 % Gillian Matson Other [facility] Other 08-29-2022 12:45-0500 Systolic blood pressure 116 mm[Hg] Gillian Matson Other [facility] Other 06-25-2022 11:00-0400 Body height 172.72 cm Gillian Matson Other [facility] Other 06-25-2022 11:00-0400 Body mass index (BMI) [Ratio] 36.49 kg/m2 Gillian Matson Other [facility] Other 06-25-2022 11:00-0400 Body temperature 100.1 [degF] Gillian Matson Other [facility] Other 06-25-2022 11:00-0400 Body weight 108.86 kg Gillian Matson Other [facility] Other 06-25-2022 11:00-0400 Respiratory rate 18 /min Gillian Matson Other [facility] Other 06-25-2022 11:00-0400 SaO2% (BldA) [Mass fraction] 99 % Gillian Matson Other [facility] Other Encounters Encounter Date Encounter Type Care Provider Facility Start: 05-29-2024 End: 05-29-2024 ambulatory Nelly Fishman Facility:[facility] Start: 05-29-2024 End: 05-29-2024 Departed Referred DO Nelly Fishman Work Phone: [facility] Start: 05-29-2024 End: 05-29-2024 ambulatory JOSÉ NELY Not Available Start: 05-08-2024 End: 05-08-2024 ambulatory JOSÉ NELY Not Available Start: 05-04-2024 End: 05-04-2024 ambulatory [facility] Start: 04-05-2024 End: 04-05-2024 ambulatory [facility] Start: 04-05-2024 End: 04-05-2024 ambulatory [facility] Start: 02-29-2024 End: 02-29-2024 ambulatory JSOÉ NELY Not Available Start: 02-28-2024 End: 02-28-2024 ambulatory JOSÉ NELY Not Available Start: 02-19-2024 End: 02-19-2024 ambulatory KAILASH Elvia [facility] Start: 12-01-2023 End: 12-01-2023 ambulatory JOSÉ NELY Not Available Start: 11-23-2023 End: 11-23-2023 ambulatory ALMITA CRUZ Not Available Start: 11-09-2022 End: 11-10-[address] JOSÉ PEREZ . Facility: Start: 08-29-2022 End: 08-29-2022 ambulatory Gillian Dano Other [facility] Other Start: 08-29-2022 Office outpatient visit 15 minutes Gillian Matson [facility] Start: 06-25-2022 End: 06-25-2022 ambulatory Gillian Dano Other [facility] Other Start: 06-25-2022 Office outpatient visit 25 minutes Gillian Dano [facility] Payers Date Payer Category Payer Self-pay 1980 Unknown [id number] 2.16.84 [id number] 1980 Unknown [id number] 2.16.8 [id number] 1980 Unknown [id number] 2.16.8 [id number] 1980 Unknown [id number] 2.16.8 [id number] 1980 Unknown [id number] 2.16.8 [id number] 1980 Unknown [id number] 2.16.84 0.1.158277.3.579.2.1258 1980 Unknown [id number] 2.16.84 0.1.640312.3.579.2.1258 1980 Unknown [id number] 2.16.84 0.1.099062.3.579.2.1258 1980 Unknown [id number] 2.16.84 0.1.871198.3.579.2.1258 1980 Unknown [id number] 2.16.84 0.1.974678.3.579.2.1258 1980 Unknown [id number] 2.16.84 0.1.473864.3.579.2.1258 1980 Unknown [id number] 2.16.84 [id number] 1958 [facility] [id number] Social History Date Type Detail Facility Sex Assigned At [facility] Other Start: 1980 Sex Assigned At Female F [facility] Evaluation note 08-29-2022 Note Date & Type Note Facility 08-29-2022 Evaluation note Encounter Date Diagnosis Assessment Notes Jul, Contact with and (suspected) exposure to other viral communicable diseases (ICD-10 - Z20.828) Jul, Right otitis media with effusion (ICD-10 - H65.91) take medication as directed. Middle ear fluid can be caused from allergies, traveling or viral infections. It may linger. Follow up with PCP if symptoms persist [facility] Other Evaluation note 06-25-2022 Note Date & Type Note Facility 06-25-2022 Evaluation note Encounter Date Diagnosis Assessment Notes May, Contact with and (suspected) exposure to other viral communicable diseases (ICD-10 - Z20.828) May, Strep pharyngitis (ICD-10 - J02.0) Symptoms presented in office today indicate Strep Throat. Take medications as directed. Saltwater gargles may help with pain and disrupts bacteria and viral infections. Continue tylenol/ibu for general discomfort. Encourage fluids. Symptoms should improve within the next 4-7 days. [facility] Other Evaluation note Note Date & Type Note Facility Evaluation note No assessment information availa [facility] Work Phone: History general Narrative - Reported Note Date & Type Note Facility History general Narrative - Reported Type Surgical History appendectomy Hospitalization History childbirth x2 [facility] Other History general Narrative - Reported Note Date & Type Note Facility History general Narrative - Reported Type Medical History MIGRAINES Medical History PLANTAR FACIITIS Medical History DEPRESSION Surgical History appendectomy Hospitalization History childbirth x2 [facility] Other Summary Purpose Family History Relationship Condition Age at Onset Recorded Date/T elia father Diabetes mellitus Unknown Heart disease Unknown History of stroke Unknown Advance Directives No Advanced Directives Records FoundNo Advanced Directives Records FoundNo Advanced Directives Records FoundNo Advanced Directives Records FoundNo Advanced Directives Records FoundNo Advanced Directives Records Found Additional Source Comments INFORMATION SOURCE (unrecogn ized section and content) DATE CREATED AUTHOR 06/22/2022 [facility] DATE CREATED AUTHOR AUTHOR'S ORGANIZ ATION 11/16/2022 [facility] DATE CREATED AUTHOR AUTHOR'S ORGANIZ ATION 02/22/2024 [facility] DATE CREATED AUTHOR AUTHOR'S ORGANIZ ATION 05/06/2024 [facility] DATE CREATED AUTHOR AUTHOR'S ORGANIZ ATION 05/30/2024 [facility] EPIC DATE CREATED AUTHOR AUTHOR'S ORGANIZ ATION 06/01/2024 [facility] REASON FOR VISIT (unrecogniz ed section and content) FEVER B/A DIZZINESSCONGESTIO N COUGH Care Teams (unrecognized sec tion and content) Team Status: Active Member Role Status Dates Nelly Fishman DO Primary Care Provider Active Team Status: Inactive Member Role Status Dates Nelly Fishman DO Primary Care Provider Active Start: May 29, 2024 End: May 29, 2024 José Perez DO Attending Provider Active Start : May 29, 2024 End: May 29, 2024 Goals (unrecognized section and content) Goals may be documented in a n alternate section FOR RECORDS PERTAINING TO PATIENTS WHO ARE OR HAVE BEEN ENROLLED IN A CHEMICAL DEPENDENCY/SUBSTANCEABUSE PROGRAM, SOME INFORMATION MAY BE OMITTED. This clinical summary was aggregated from multiple sources. Caution should be exercised in using it in the provision of clinical care. This summary normalizes information from multiple sources, and as a consequence, information in this document may materially change the coding, format and clinical context of patient data. In addition, data may be omitted in some cases. CLINICAL DECISIONS SHOULD BE BASED ON THE PRIMARY CLINICAL RECORDS. [facility] [employer] provides no warranty or guarantee of the accuracy or completeness of information in this document.
== END 2024-05-29 13:48 ==
LOC: LAB 06-01 13:48
PROVIDERS: Visit Provider Obstetrics & Gynecology
DX: N92.0 Excessive and frequent menstruation with regular cycle (principal)
CPT/HCPCS: 88305

== ENCOUNTER 2024-06-08 12:09 | Outpatient (OUT) | payer BC, SELFPAY ==
--- OUTSIDE RECORDS SUMMARY | 2024-06-08 12:12 | XMS_ITS | CCD ---
Author Organization [facility] Care Team Providers Care Title Agent Name Role Phone Gillian Matson Unavailable NELY ., DR KUMAR Admitting Unavailable NELY ., DR KUMAR Attending Unavailable [place], DR JAYDE Winchester Consulting Unavailable NELY ., [...] PEREZ Attending Unavailable JOSÉ PEREZ Attending Unavailable DO Nelly Fishman Primary Care Provider [phone] DO José Perez Attending Provider Nelly Fishman Primary Care Unavailable José Perez Attending Unavailable José Perez Admitting Unavailable Medications Current Medications Medication Drug Class(es) Dates [...] tablet Orally Once a day Active Citalopram Natoma bromide Active 1.5 ml fremanezumab-vfrm 150 mg/ml [...] Results Test Name Value Interpretation Reference Range [facility] 05-29-2024 L Specimen: [id number] Received: 05/30/24 Status: ERIN Faye Num: [id number] Spec Type: Surgical Subm Anh Perez Tissues: A Endometrium - Biopsy (EMBX) Procedures: HE/2, Gross/Micro L4 Age/ Patient Sex Location Account Attending Physician Caity Woodward 44/F [place] [id number] José Perez SPEC NUM: [id number] RECD: 05/30/24 STATUS: ERIN FAYE NUM: [id number] RAMONA: 05/29/24- SUBM DR: José Perez ENTERED: 05/30/[address] [facility] [address]: Shivam Elizalde SPEC TYPE: Surgical DEPT: AURE ROWLEY ENTERED BY: [id number] RECV BY: [id number] ORDERED: PREETHI Gross/Micro L4 ORDERED: STEPHANIEIris Gross/Micro L4 Pathological Diagnosis Endometrial biopsy: -Several small to 1 elongated strips of the slightly disordered proliferative endometrium of the early phase type without hyperplasia or atypia identified Clinical Information Menorrhagia N92.0 Gross Description The specimen is received in formalin with the patient's name and endometrial biopsy and consists of multiple patricio-pink soft tissue fragments measuring 1.5 x 1.5 x 0.3 cm in aggregate. The specimen is filtered entirely submitted in cassette A1. Microscopic Description Microscopic examinations are performed supporting the above interpretation Specimen: [id number] Received: 05/30/24 Status: ERIN Faye Num: [id number] Spec Type: Surgical Subm Dr: José Perez Tissues: A Endometrium - Biopsy (EMBX) Procedures: PREETHI, Gross/Micro L4 Patient: Caity Woodward [id number] (Continued) Specimen: [id number] Received: 05/30/24 (Continued) Signed (signature on file) Anthony Riley MD 06/01/24 1101 Specimen: [id number] Received: 05/30/24 Status: ERIN Faye Num: [id number] Spec Type: Surgical Subm Dr: José Perez Tissues: A Endometrium - Biopsy (EMBX) Procedures: STEPHANIE/Rogers Simmons/Marivel L4 Patient: Caity Woodward [id number] (Continued) Specimen: [id number] Received: 05/30/24 (Continued) CPT Codes 91730 Specimen: [id number] Received: 05/30/24 Status: ERIN Faye Num: [id number] Spec Type: Surgical Subm Dr: José Perez Tissues: A Endometrium - Biopsy (EMBX) Procedures: HE/2, Gross/Micro L4 Patient: Caity Woodward [id number] (Continued) Signed (signature on file) Anthony Riley MD 06/01/24 1101 Normal [facility] CBC AND AUTO DIFFon 04-05-20 24 ABSOLUTE BASOPHIL 0.0 X10E9/L Normal 0.0-0.2 [facility] Comment on above: Performed By: #### C MP, 1987-5, 3016-3, CBCA, 21310-08, 17427-3, 85998-5 #### [facility] ([id number]) [address], [address] [place] [address] ABSOLUTE NEUTROPHIL 5.7 X10E9/L Normal 1.5-6.6 [facility] Comment on above: Performed By: #### C BRIA, 1987-12, 3015-10, CBCA, 2132-04, , 22302-4 #### [facility] ([id number]) [address], [address] [place] [address] Basophils/100 WBC (Bld) 0.4 % Normal [facility] Comment on above: Performed By: #### C BRIA, 1987-12, 3015-10, CBCA, 2132-04, , 19164-2 #### [facility] ([id number]) [address], [address] [place] [address] Eosinophils (Bld) [#/Vol] 0.0 10*3/uL Normal 0.0-0.4 [facility] Comment on above: Performed By: #### C BRIA, 1987-12, 3015-10, CBCA, 2132-04, , 46190-5 #### [facility] ([id number]) [address], [address] [place] [address] Eosinophils/100 WBC (Bld) 0.6 % Normal [facility] Comment on above: Performed By: #### C BRIA, 1987-12, 3015-10, CBCA, 2132-04, , 03255-0 #### [facility] ([id number]) [address], [address] [place] [address] Erythrocyte distribution width (RBC) [Ratio] 13.2 % Normal 11.5-15.0 [facility] Comment on above: Performed By: #### C BRIA, 1987-12, 3015-10, CBCA, 2132-04, , 34670-6 #### [facility] ([id number]) [address], [address] [place] [address] Hematocrit (Bld) [Volume fraction] 37.7 % Normal 35-47 [facility] Comment on above: Performed By: #### C BRIA, 1987-12, 3015-10, CBCA, 2132-04, , 19361-1 #### [facility] ([id number]) [address] [address] Hemoglobin (Bld) [Mass/Vol] 12.6 g/dL Normal 11.7-15.5 [facility] Comment on above: Performed By: #### C BRIA, 1987-12, 3015-10, CBCA, 2132-04, , 08225-3 #### [facility] ([id number]) [address] [address] Lymphocytes (Bld) [#/Vol] 1.3 10*3/uL Normal 1.0-3.5 [facility] Comment on above: Performed By: #### C BRIA, 1987-12, 3015-10, CBCA, 2132-04, 14782-0, 13146-2 #### [facility] ([id number]) [address] [address] Lymphocytes/100 WBC (Bld) 17.9 % Normal [facility] Comment on above: Performed By: #### C BRIA, 1987-12, 3015-10, CBCA, 2132-04, , 87573-0 #### [facility] ([id number]) [address] [address] MCH (RBC) [Entitic mass] 28.8 pg Normal 27-34 [facility] Comment on above: Performed By: #### C BRIA, 1987-12, 3015-10, CBCA, 2132-04, 15532-5, 34569-5 #### [facility] ([id number]) [address], [address] [place] [address] MCHC (RBC) [Mass/Vol] 33.3 g/dL Normal 32-36 [facility] Comment on above: Performed By: #### C BRIA, 1987-12, 3015-10, CBCA, 2132-04, , 65531-2 #### [facility] ([id number]) [address], [address] [place] [address] MCV (RBC) [Entitic vol] 86 fL Normal 80-100 [facility] Comment on above: Performed By: #### C BRIA, 1987-12, 3015-10, CBCA, 2132-04, 65665-8, 41768-3 #### [facility] ([id number]) [address], [address] [address] Monocytes (Bld) [#/Vol] 0.4 10*3/uL Normal 0-0.9 [facility] Comment on above: Performed By: #### C BRIA, 1987-12, 3015-10, CBCA, 2132-04, , 39239-8 #### [facility] ([id number]) [address], [address] [address] Monocytes/100 WBC (Bld) 5.4 % Normal [facility] Comment on above: Performed By: #### C BRIA, 1987-12, 3015-10, CBCA, 2132-04, 21322-7, 42997-6 #### [facility] ([id number]) [address] [address] Neutrophils/100 WBC (Bld) 75.7 % Normal [facility] Comment on above: Performed By: #### C BRIA, 1987-12, 3015-10, CBCA, 2132-04, 39015-7, 18179-8 #### [facility] ([id number]) [address], [address] [place] [address] Platelet mean volume (Bld) [Entitic vol] 7.9 fL Normal 7-12 [facility] Comment on above: Performed By: #### Shawna FRASER, 1987-12, 3, CBCA, 2132-04, 51009-1, 91177-2 #### [facility] ([id number]) [address], [address] [place] [address] Platelets (Bld) [#/Vol] 281 10*3/uL Normal 150-450 [facility] Comment on above: Performed By: #### Shawna FRASER, 1987-12, 3015-10, CBCA, 2132-04, 22064-5, 52186-5 #### [facility] ([id number]) [address], [address] [place] [address] RBC COUNT 4.37 X10E12/L Normal 3.80-5.20 [facility] Comment on above: Performed By: #### C BRIA, 1987-12, 3015-10, CBCA, 2132-04, 63187-5, 08639-6 #### [facility] ([id number]) [address], [address] [place] [address] WBC (Bld) [#/Vol] 7.5 10*3/uL Normal 4.0-11.0 [facility] Comment on above: Performed By: #### Shawna FRASER, 1987-12, 3015-10, CBCA, 2132-04, 15075-7, 95593-0 #### [facility] ([id number]) [address], [address] [place] [address] COMPREHENSIVE METABOLIC PANE Cristian 04-05-2024 Albumin [Mass/Vol] 4.3 g/dL Normal 3.2-5.3 [facility] Comment on above: Performed By: #### C BRIA, 1987-12, 3015-10, CBCA, 2132-04, 18739-4, 99120-5 #### [facility] ([id number]) [address], [address] [place] [address] ALP [Catalytic activity/Vol] 92 U/L Normal 39-130 [facility] Comment on above: Performed By: #### C BRIA, 1987-12, 3015-10, CBCA, 2132-04, 44527-4, 20154-5 #### [facility] ([id number]) [address], [address] [place] [address] ALT [Catalytic activity/Vol] 20 U/L Normal 0-31 [facility] Comment on above: Performed By: #### C BRIA, 1987-12, 3015-10, CBCA, 2132-04, 51176-9, 07285-9 #### [facility] ([id number]) [address], [address] [place] [address] Anion gap [Moles/Vol] 10 mmol/L Normal 5-15 [facility] Comment on above: Performed By: #### C BRIA, 1987-12, 3015-10, CBCA, 2132-04, 87808-8, 32616-0 #### [facility] ([id number]) [address], [address] [place] [address] AST [Catalytic activity/Vol] 21 U/L Normal 0-41 [facility] Comment on above: Performed By: #### C BRIA, 1987-12, 3015-10, CBCA, 2132-04, 26555-2, 55513-7 #### [facility] ([id number]) [address], [address] [place] [address] Bilirubin [Mass/Vol] 0.4 mg/dL Normal 0.3-1.2 [facility] Comment on above: Performed By: #### C BRIA, 1987-12, 3015-10, CBCA, 2132-04, 08998-7, 01827-1 #### [facility] ([id number]) [address], [address] [place] [address] Calcium [Mass/Vol] 9.1 mg/dL Normal 8.5-10.5 [facility] Comment on above: Performed By: #### C BRIA, 1987-12, 3015-10, CBCA, 2132-04, 24847-6, 17315-0 #### [facility] ([id number]) [address], [address] [place] [address] Chloride [Moles/Vol] 103 mmol/L Normal 98-109 [facility] Comment on above: Performed By: #### C BRIA, 1987-12, 3015-10, CBCA, 2132-04, 90652-8, 15130-5 #### [facility] ([id number]) [address], [address] [place] [address] CO2 [Moles/Vol] 27 mmol/L Normal 22-32 [facility] Comment on above: Performed By: #### C BRIA, 1987-12, 3015-10, CBCA, 2132-04, 15584-2, 53261-3 #### [facility] ([id number]) [address], [address] [place] [address] Creatinine [Mass/Vol] 0.85 mg/dL Normal 0.40-1.00 [facility] Comment on above: Result Comment: METH OD TRACEABLE TO IDMS STANDARD Performed By: #### C BRIA, 1987-12, 3015-10, CBCA, 2132-04, 32106-9, 90450-7 #### [facility] ([id number]) [address], [address] [place] [address] GFR/1.73 sq M.predicted among non-blacks MDRD (S/P/Bld) [Vol rate/Area] 87 mL/min/{1.73_m2} Normal >59 [facility] Comment on above: Result Comment: Reported eGFR is based on the CKD-EPI 2020 equation that does not use a race coefficient. Performed By: #### C BRIA, 1987-12, 3015-10, CBCA, 2132-04, 16629-4, 94087-8 #### [facility] ([id number]) [address], [address] [place] [address] Glucose [Mass/Vol] 88 mg/dL Normal 65-99 [facility] Comment on above: Performed By: #### C BRIA, 1987-12, 3015-10, CBCA, 2132-04, 49307-3, 46795-4 #### [facility] ([id number]) [address], [address] [place] [address] Potassium [Moles/Vol] 4.0 mmol/L Normal 3.5-5.0 [facility] Comment on above: Performed By: #### C BRIA, 1987-12, 3015-10, CBCA, 2132-04, 42818-7, 64214-9 #### [facility] ([id number]) [address], [address] [place] [address] Protein [Mass/Vol] 7.1 g/dL Normal 6.0-8.0 [facility] Comment on above: Performed By: #### Shawna FRASER, 1987-12, 3015-10, CBCA, 2132-04, 59426-4, 17663-3 #### [facility] ([id number]) [address], [address] [place] [address] Sodium [Moles/Vol] 140 mmol/L Normal 134-146 [facility] Comment on above: Performed By: #### C BRIA, 1987-12, 3015-10, CBCA, 2132-04, 11756-6, 52365-8 #### [facility] ([id number]) [address], [address] [place] [address] Urea nitrogen [Mass/Vol] 15 mg/dL Normal 5-23 [facility] Comment on above: Performed By: #### C BRIA, 1987-12, 3015-10, CBCA, 2132-04, 83988-4, 52896-7 #### [facility] ([id number]) [address], [address] [place] [address] CRP [Mass/Vol]on 04-05-2024 C REACTIVE PROTEIN 1.0 mg/dL High 0.000-0.744 [facility] Comment on above: Performed By: #### C BRIA, 1987-12, 3015-10, CBCA, 2132-04, 40138-3, 40695-5 #### [facility] ([id number]) [address], [address] [place] [address] ESR Photometric method (Bld) [Velocity]on 04-05-2024 ESR, ERYTHROCYTE SEDIMENTATION RATE 22 mm/h High 0-20 [facility] Comment on above: Performed By: #### Shawna FRASER, 1987-12, 3015-10, CBCA, 2132-04, 00662-0, 30288-3 #### [facility] ([id number]) [address], [address] [place] [address] TSH Qnon 04-05-2024 TSH 1.95 uIU/mL Normal 0.49-4.67 [facility] Comment on above: Performed By: #### Shawna FRASER, 1987-12, 3015-10, CBCA, 2132-04, 62642-6, 76932-4 #### [facility] ([id number]) [address], [address] [place] [address] VITAMIN B12on 04-05-2024 Cobalamin (Vitamin B12) [Mass/Vol] 224 pg/mL Normal 180-914 [facility] Comment on above: Performed By: #### Shawna FRASER, 1987-12, 3, CBCA, 2132-04, 32733-1, 24223-6 #### [facility] ([id number]) [address] [place] [address], [address] [place] [address] Vitamin D+Metabolites [Mass/ Vol]on 04-05-2024 VITAMIN D 25 HYD TOT 18.4 ng/mL Low 30-100 [facility] Comment on above: Result Comment: Vitamin D status 25 [place] Vitamin D Deficiency <20 ng/mL Insufficiency 20-29 ng/mL Sufficiency 30-100 ng/mL Toxicity >100 ng/mL NOTE: A pediatric reference range has not been established by the acid recovery operator of this kit. The [place] [employer] recommends a Vitamin D level of = or >20ng/mL in infants and children. Performed By: #### C , 1987-12, 3015-10, CBCA, 2132-04, 42254-7, 28210-1 #### [facility] ([id number]) [address] [place] [address], [address] [address] B. burgdorferi IgG+IgM Qn (S )on 02-19-2024 LYME TOTAL <0.2 Normal <0.9 [facility] Comment on above: Result Comment: Interpretation-------- <0.9 Negative 0.9 - 1.0 Equivocal >1.0 Positive No serological evidence of Borrelia infection.A non-reactive result does not exclude the possibility of Borrelia infection and cannot exclude early infection with B.burgdorferi. If Lyme borreliosis is suspected, a second sample should be collected and tested 2-4 weeks later. Performed By: #### C [facility], 15202-4, 00611-6, 1987-12, 3084-1, 27455-8, 07579-0, 53048-0 #### [facility] ([id number]) [address], [address] [place] [address] CBC AND AUTO DIFFon 02-19-20 24 ABSOLUTE BASOPHIL 0.0 X10E9/L Normal 0.0-0.2 [facility] Comment on above: Performed By: #### Shawna PAGAN, 03674-1, 12311-3, 1987-12, 308-, 89952-6, 63952-1, 93345-9 #### [facility] ([id number]) [address], [address] [place] [address] ABSOLUTE NEUTROPHIL 4.1 X10E9/L Normal 1.5-6.6 [facility] Comment on above: Performed By: #### Shawna PAGAN, 52922-8, 08016-8, 1987-12, 3083-, 51684-8, 62963-4, 24436-4 #### [facility] ([id number]) [address], [address] [place] [address] Basophils/100 WBC (Bld) 0.3 % Normal [facility] Comment on above: Performed By: #### Shawna PAGAN, 23708-7, 98058-0, 1987-12, 3083-, 09919-6, 67211-5, 23444-2 #### [facility] ([id number]) [address], [address] [place] [address] Eosinophils (Bld) [#/Vol] 0.1 10*3/uL Normal 0.0-0.4 [facility] Comment on above: Performed By: #### Shawna PAGAN, 66409-7, 56881-2, 1987-12, 3083-, 70909-7, 80725-0, 60799-3 #### [facility] ([id number]) [address], [address] [place] [address] Eosinophils/100 WBC (Bld) 1.1 % Normal [facility] Comment on above: Performed By: #### C EJ, 10312-8, 71087-9, 1987-12, 3084-1, 04175-9, 01569-7, 33172-1 #### [facility] ([id number]) [address], [address] [place] [address] Erythrocyte distribution width (RBC) [Ratio] 13.4 % Normal 11.5-15.0 [facility] Comment on above: Performed By: #### C EJ, 47586-9, 80570-4, 1987-12, 308-1, 86571-4, 79109-9, 72522-5 #### [facility] ([id number]) [address], [address] [place] [address] Hematocrit (Bld) [Volume fraction] 39.2 % Normal 35-47 [facility] Comment on above: Performed By: #### Shawna PAGAN, 93947-1, 50256-9, 1987-12, 308-1, 34818-6, 89908-1, 37349-7 #### [facility] ([id number]) [address], [address] [place] [address] Hemoglobin (Bld) [Mass/Vol] 12.9 g/dL Normal 11.7-15.5 [facility] Comment on above: Performed By: #### Shawna PAGAN, 55908-2, 94639-8, 1987-12, 3083-1, 51367-5, 29757-9, 97449-4 #### [facility] ([id number]) [address], [address] [place] [address] Lymphocytes (Bld) [#/Vol] 1.3 10*3/uL Normal 1.0-3.5 [facility] Comment on above: Performed By: #### Shawna PAGAN, 19809-6, 60769-1, 1987-12, 3084-1, 91133-3, 43473-6, 47250-3 #### [facility] ([id number]) [address], [address] [place] [address] Lymphocytes/100 WBC (Bld) 21.8 % Normal [facility] Comment on above: Performed By: #### Shawna PAGAN, 70594-0, 85899-4, 1987-12, 3084-1, 65321-5, 41295-2, 53635-3 #### [facility] ([id number]) [address], [address] [place] [address] MCH (RBC) [Entitic mass] 28.7 pg Normal 27-34 [facility] Comment on above: Performed By: #### Shawna PAGAN, 92838-1, 38397-9, 1987-12, 3083-, 02751-8, 76434-1, 94879-2 #### [facility] ([id number]) [address], [address] [place] [address] MCHC (RBC) [Mass/Vol] 33.0 g/dL Normal 32-36 [facility] Comment on above: Performed By: #### Shawna PAGAN, 32097-3, 87600-4, 1987-12, 3083-, 68924-2, 76641-0, 81896-8 #### [facility] ([id number]) [address], [address] [place] [address] MCV (RBC) [Entitic vol] 87 fL Normal 80-100 [facility] Comment on above: Performed By: #### Shawna PAGAN, 43018-7, 55792-9, 1987-12, 308-1, 35453-6, 91646-8, 70749-0 #### [facility] ([id number]) [address], [address] [place] [address] Monocytes (Bld) [#/Vol] 0.4 10*3/uL Normal 0-0.9 [facility] Comment on above: Performed By: ###Violeta Matos BCA, 80618-3, 42474-4, 1987-, 3084-1, 09832-8, 49193-7, 90368-9 #### [facility] ([id number]) [address], [address] [place] [address] Monocytes/100 WBC (Bld) 6.7 % Normal [facility] Comment on above: Performed By: #### C EJ, 54563-8, 44021-6, 1987-12, 308-1, 16422-6, 49821-0, 58389-9 #### [facility] ([id number]) [address], [address] [place] [address] Neutrophils/100 WBC (Bld) 70.1 % Normal [facility] Comment on above: Performed By: #### C EJ, 64352-4, 69759-5, 1987-12, 308-1, 22704-9, 18859-8, 39904-3 #### [facility] ([id number]) [address], [address] [place] [address] Platelet mean volume (Bld) [Entitic vol] 8.2 fL Normal 7-12 [facility] Comment on above: Performed By: #### C EJ, 98027-4, 68805-5, 1987-12, 308-1, 97195-7, 18413-0, 04306-3 #### [facility] ([id number]) [address], [address] [place] [address] Platelets (Bld) [#/Vol] 232 10*3/uL Normal 150-450 [facility] Comment on above: Performed By: #### C EJ, 90935-1, 73637-0, 1987-12, 308-1, 31508-2, 24004-7, 16398-7 #### [facility] ([id number]) [address], [address] [place] [address] RBC COUNT 4.51 X10E12/L Normal 3.80-5.20 [facility] Comment on above: Performed By: #### Shawna PAGAN, 23342-2, 36813-9, 1987-, 3084-1, 59864-9, 51260-9, 64085-8 #### [facility] ([id number]) [address], [address] [place] [address] WBC (Bld) [#/Vol] 5.9 10*3/uL Normal 4.0-11.0 [facility] Comment on above: Performed By: #### C EJ, 35347-7, 06520-5, 1987-, 308-1, 84198-0, 94049-9, 02719-8 #### [facility] ([id number]) [address], [address] [place] [address] CRP [Mass/Vol]on 02-19-2024 C REACTIVE PROTEIN 0.9 mg/dL High 0.000-0.744 [facility] Comment on above: Performed By: #### Shawna PAAGN, 96815-5, 63982-0, 1987-, 3084-1, 90118-0, 58266-1, 30715-3 #### [facility] ([id number]) [address], [address] [place] [address] ESR Photometric method (Bld) [Velocity]on 02-19-2024 ESR, ERYTHROCYTE SEDIMENTATION RATE 26 mm/h High 0-20 [facility] Comment on above: Performed By: #### Shawna PAGAN, 96168-0, 43870-1, 1987-, 308-1, 90803-6, 64020-3, 79683-3 #### [facility] ([id number]) [address], [address] [place] [address] HLA-B27 FC Ql (Bld/Tiss)on 0 02-19-2024 HLA-B27 TYPING Positive Normal [facility] Comment on above: Performed By: #### Shawna PAGAN, 51707-5, 97039-5, 1987-12, 3083-1, 34007-8, 22786-8, 67916-4 #### [facility] ([id number]) [address], [address] [place] [address] Nuclear Ab IA Ql (S)on 02-18 LANIE Screen w/reflex Negative Normal [facility]G [facility] Comment on above: Result Comment: Testing performed using multiplex flow immunoassay. Eleven different antigens associated with systemic autoimmune diseases (dsDNA,Sm,Sm/ANTIQUE JEWELRY REPAIRER,ANTIQUE JEWELRY REPAIRER,Chromatin, SSA,SSB,Nikki-1,Scl70,Ribo P,Centromere B) are included in this screening test. Performed By: #### C EJ, 34063-7, , 1986-12, 3083-, 01237-5, 25218-0, 68572-9 #### [facility] ([id number]) [address], [address] [place] [address] Rheumatoid factor Nephelomet ry Qn (S)on 02-19-2024 RHEUMATOID FACTOR <10 Normal <20 [facility] Comment on above: Performed By: #### C EJ, 77682-8, 53043-0, 1987-12, 3083-, 16568-6, 90806-9, 12482-4 #### [facility] ([id number]) [address], [address] [place] [address] URIC ACIDon 02-19-2024 Urate [Mass/Vol] 5.5 mg/dL Normal 2.6-7.2 [facility] Comment on above: Performed By: #### C EJ, 75600-8, , 1986-12, 3083-, 97223-1, 72631-8, 27002-8 #### [facility] ([id number]) [address], [address] [place] [address] MG MAMM SCREEN 3D VANDANA CADon 11-09-2022 MG MAMM SCREEN 3D VANDANA CAD Patient: CAITY WOODWARD Exam Date: 11/09/2022 : 1980 Gender:F Ordering : DR JOSÉ PEREZ . Admission #: [id number] Family : Order #: [id number] CLICK HERE TO VIEW EXAM RADIOLOGY REPORT PROCEDURE: MAMMOGRAM SCREENING 3D BILATERAL CAD COMPARISON: MG MAMM SCREEN 3D VANDANA CAD, 08/15/2021. INDICATIONS: Screening mammography Calculator Name NCI Breast Cancer Risk Assessment Tool 5 Year Breast Cancer Risk Not Reported. Lifetime Breast Cancer Risk Not Reported. Personal Breast Cancer No Personal Ovarian Cancer No Treatments None Family Cancers None LOCATION: [facility] BREAST COMPOSITION: Almost entirely fatty. FINDINGS: DIAGNOSTIC [...] Valles MD on 11/09/2022 at 13:56 Normal [facility] COVID/FLU/RSV RT-PCRon 08-29 SARS-CoV-2 (COVID-19) RNA BERNABE+probe Ql (Unsp spec) Negative [facility] Other COVID/FLU/RSV RT-PCR Negative [facility] Other Quick Strepon 06-25-2022 S. pyogenes Org specific cx Ql (Throat) Positive [facility] Other Quick Strep [facility] Other SARS-CoV-2 (COVID-19) RNA NA A+probe Ql (Resp)on 06-25-2022 SARS-CoV-2 (COVID-19) RNA BERNABE+probe Ql (Unsp spec) Negative [facility] Other MRI Foot w/o Lefton 06-18-20 MRI [...] by Tanvir Ochoa on 06/18/2022 1353 Normal [facility] Vital Signs Date Time Vital Sign Value Performing Clinician Facility 08-29-2022 12:45-0500 Body height 172.72 cm Gillian Matson Other [facility] Other 08-29-2022 12:45-0500 Body mass index (BMI) [Ratio] 39.56 kg/m2 Gillian Matson Other [facility] Other 08-29-2022 12:45-0500 Body temperature 98.6 [degF] Gillian Matson Other [facility] Other 08-29-2022 12:45-0500 Body weight 118.03 kg Gillian Matson Other [facility] Other 08-29-2022 12:45-0500 Diastolic blood pressure 67 mm[Hg] Gillian Matson Other [facility] Other 08-29-2022 12:45-0500 Respiratory rate 18 /min Gillian Matson Other [facility] Other 08-29-2022 12:45-0500 SaO2% (BldA) [Mass fraction] 98 % Gillian Matson Other [facility] Other 08-29-2022 12:45-0500 Systolic blood pressure 116 mm[Hg] Gillian Chowdhuryault Other [facility] Other 06-25-2022 11:00-0400 Body height 172.72 cm Gillian Chowdhuryault Other [facility] Other 06-25-2022 11:00-0400 Body mass index (BMI) [Ratio] 36.49 kg/m2 Gillian Chowdhuryault Other [facility] Other 06-25-2022 11:00-0400 Body temperature 100.1 [degF] Gillian Matson Other [facility] Other 06-25-2022 11:00-0400 Body weight 108.86 kg Gillian Chowdhuryault Other [facility] Other 06-25-2022 11:00-0400 Respiratory rate 18 /min Gillian Chowdhuryault Other [facility] Other 06-25-2022 11:00-0400 SaO2% (BldA) [Mass fraction] 99 % Gillian Chowdhuryault Other [facility] Other Encounters Encounter Date Encounter Type Care Provider Facility Start: 05-29-2024 End: 05-29-2024 ambulatory DO Nelly Fishman Work Phone: [facility] Work Phone: Start: 05-29-2024 End: 05-29-2024 Departed Referred DO Nelly Fishman Work Phone: [facility] Start: 05-29-2024 End: 05-29-2024 ambulatory JOSÉ NELY Not Available Start: 05-08-2024 End: 05-08-2024 ambulatory JOSÉ NELY Not Available Start: 05-04-2024 End: 05-04-2024 ambulatory [facility] Start: 04-05-2024 End: 04-05-2024 ambulatory [facility] Start: 04-05-2024 End: 04-05-2024 ambulatory [facility] Start: 02-29-2024 End: 02-29-2024 ambulatory JOSÉ NELY Not Available Start: 02-28-2024 End: 02-28-2024 ambulatory JOSÉ NELY Not Available Start: 02-19-2024 End: 02-19-2024 ambulatory [facility] Start: 12-01-2023 End: 12-01-2023 ambulatory JOSÉ NELY Not Available Start: 11-23-2023 End: 11-23-2023 ambulatory ALMITA CRUZ Not Available Start: 11-09-2022 End: 11-10-2022 ambulatory JOSÉ NELY . Facility: Start: 08-29-2022 End: 08-29-2022 ambulatory Gillian Matson Other [facility] Other Start: 08-29-2022 Office outpatient visit 15 minutes Gillian Matson [facility] Start: 06-25-2022 End: 06-25-2022 ambulatory Gillian Matson Other [facility] Other Start: 06-25-2022 Office outpatient visit 25 minutes Gillian Matson [facility] Payers Date Payer Category Payer Self-pay 1980 Unknown [id number] 2.16.84 [id number] 1980 Unknown [id number] 2.16.8 [id number] 1981 Unknown [id number] 2.16.8 [id number] 1981 Unknown [id number] 2.16.8 [id number] 1981 Unknown [id number] 2.16.8 [id number] 1981 Unknown [id number] 2.16.84 [id number] 1981 Unknown [id number] 2.16.84 [id number] 1981 Unknown [id number] 2.16.84 [id number] 1981 Unknown [id number] 2.16.84 [id number] 1981 Unknown [id number] 2.16.84 [id number] 1981 Unknown [id number] 2.16.84 [id number] 1980 Unknown [id number] 2.16.84 [id number] 1958 [facility] [id number] Social History Date Type Detail Facility Sex Assigned At [facility] Other Start: 1980 Sex Assigned At Female F [facility] Evaluation note 08-29-2022 Note Date & [...] Follow up with PCP if symptoms persist [facility] Other Evaluation note 06-25-2022 Note Date & [...] should improve within the next 4-7 days. [facility] Other Evaluation note Note Date & Type Note Facility [facility] History general Narrative - Reported Note Date & Type Note Facility History general Narrative - Reported Type Surgical History appendectomy Hospitalization History childbirth x2 [facility] Other History general Narrative - Reported Note Date & Type Note Facility History general Narrative - Reported Type Medical History MIGRAINES Medical History PLANTAR FACIITIS Medical History DEPRESSION Surgical History appendectomy Hospitalization History childbirth x2 [employer] [facility] Other Summary Purpose Family History No Family History Records Found Relationship Condition Age at Onset Recorded Date/T elia father Diabetes mellitus Unknown Heart disease Unknown History of stroke Unknown Advance Directives No Advanced Directives Records FoundNo Advanced Directives Records FoundNo Advanced Directives Records FoundNo Advanced Directives Records FoundNo Advanced Directives Records FoundNo Advanced Directives Records Found Additional Source Comments INFORMATION SOURCE (unrecogn ized section and content) DATE CREATED AUTHOR 06/22/2022 [facility] dical Specialist DATE CREATED AUTHOR AUTHOR'S ORGANIZ ATION 11/16/2022 [facility] pital DATE CREATED AUTHOR AUTHOR'S ORGANIZ ATION 02/22/2024 [facility] DATE CREATED AUTHOR AUTHOR'S ORGANIZ ATION 05/06/2024 [facility] DATE CREATED AUTHOR AUTHOR'S ORGANIZ ATION 05/30/2024 [facility] dical Specialists [facility] DATE CREATED AUTHOR AUTHOR'S ORGANIZ ATION 06/03/2024 [facility] REASON FOR VISIT (unrecogniz ed [...] BE BASED ON THE PRIMARY CLINICAL RECORDS. [facility] [employer] [facility]. provides no warranty or guarantee of the accuracy or completeness of information in this document.
== END 2024-06-08 12:10 | disposition home or self-care (01) ==
LOC: PST 12:10
PROVIDERS: Visit Provider Obstetrics & Gynecology
DX: Z01.818 Encounter for other preprocedural examination (principal); Z30.2 Encounter for sterilization; N92.0 Excessive and frequent menstruation with regular cycle; N93.9 Abnormal uterine and vaginal bleeding, unspecified; R10.2 Pelvic and perineal pain

== ENCOUNTER 2024-06-23 07:19 | Day surgery (SDC) | payer BC, SELFPAY ==
[2024-06-08 13:02] VITALS: BP 130/70; PULSE 90; TEMP 36.5; O2SAT 95; BMI 42.1
[2024-06-23] VITALS (15 sets, daily range): BP systolic 119–147; BP diastolic 63–88; PULSE 18–104; TEMP 36.2–36.4; O2SAT 93–100; BMI 42.1
--- OUTSIDE RECORDS SUMMARY | 2024-06-23 07:21 | XMS_ITS | CCD ---
Author Organization [facility] Care Team Providers Care Criminal Researcher Name Role Phone Gillian Matson Unavailable NELY ., DR KUMAR Admitting Unavailable NELY ., DR KUMAR Attending Unavailable DULUTH, DR JAYDE Winchester Consulting Unavailable NELY ., [...] Unavailable DO Nelly Fishman Primary Care Provider [phone] DO José Perez Attending Provider [phone] Nelly Fishman Primary Care Unavailable José Perez [...] tablet Orally Once a day Active Citalopram [place] bromide Active 1.5 ml fremanezumab-vfrm 150 mg/ml [...] Results Test Name Value Interpretation Reference Range [facility] 05-29-2024 L Specimen: [id number] Received: 05/30/24 Status: ERIN Faye Num: [id number] Spec Type: Surgical Subm Anh Perez Tissues: A Endometrium - Biopsy (EMBX) Procedures: HE/2, Gross/Micro L4 Age/ Patient Sex Location Account Attending Physician Caity Woodward 44/F [facility] [id number] José Perez SPEC NUM: [id number] RECD: 05/30/24 STATUS: ERIN FAYE NUM: [id number] RAMONA: 05/29/24- SUBM DR: José Perez ENTERED: 05/30/[address] [facility] [address]: Shivam Elizalde SPEC TYPE: Surgical DEPT: AURE ROWLEY ENTERED BY: [id number] RECV BY: [id number] ORDERED: PREETHI Gross/Micro L4 ORDERED: STEPHANIEIris Gross/Micro [...] are performed supporting the above interpretation Specimen: [id number] Received: 05/30/24 Status: ERIN Faye Num: [id number] Spec Type: Surgical Subm Dr: José Perez Tissues: A Endometrium - Biopsy (EMBX) Procedures: PREETHI, Gross/Micro L4 Patient: Caity Woodward [id number] (Continued) Specimen: [id number] Received: 05/30/24 (Continued) Signed (signature on file) Anthony Riley MD 06/01/24 1101 Specimen: [id number] Received: 05/30/24 Status: ERIN Faye Num: [id number] Spec Type: Surgical Subm Dr: José Perez Tissues: A Endometrium - Biopsy (EMBX) Procedures: STEPHANIE/Rogers Simmons/Marivel L4 Patient: Caity Woodward [id number] (Continued) Specimen: [id number] Received: 05/30/24 (Continued) CPT Codes 16325 Specimen: [id number] Received: 05/30/24 Status: ERIN Faye Num: [id number] Spec Type: Surgical Subm Dr: José Perez Tissues: A Endometrium - Biopsy (EMBX) Procedures: HE/2, Gross/Micro L4 Patient: Caity Woodward [id number] (Continued) Signed (signature on file) Anthony Riley MD 06/01/24 1101 Normal [facility] CBC AND AUTO DIFFon 04-05-20 24 ABSOLUTE BASOPHIL 0.0 X10E9/L Normal 0.0-0.2 [facility] Comment on above: Performed By: #### C MP, 1987-5, 3016-3, CBCA, 21310-08, 54089-0, 11815-8 #### [facility] ([id number]) [address], [address] [place] [address] ABSOLUTE NEUTROPHIL 5.7 X10E9/L Normal 1.5-6.6 [facility] Comment on above: Performed By: #### C BRIA, 1987-12, 3015-10, CBCA, 2132-04, , 03394-1 #### [facility] ([id number]) [address], [address] [place] [address] Basophils/100 WBC (Bld) 0.4 % Normal [facility] Comment on above: Performed By: #### C BRIA, 1987-12, 3015-10, CBCA, 2132-04, , 28624-4 #### [facility] ([id number]) [address], [address] [place] [address] Eosinophils (Bld) [#/Vol] 0.0 10*3/uL Normal 0.0-0.4 [facility] Comment on above: Performed By: #### C BRIA, 1987-12, 3015-10, CBCA, 2132-04, , 54741-8 #### [facility] ([id number]) [address], [address] [place] [address] Eosinophils/100 WBC (Bld) 0.6 % Normal [facility] Comment on above: Performed By: #### C BRIA, 1987-12, 3015-10, CBCA, 2132-04, , 93255-2 #### [facility] ([id number]) [address], [address] [place] [address] Erythrocyte distribution width (RBC) [Ratio] 13.2 % Normal 11.5-15.0 [facility] Comment on above: Performed By: #### C BRIA, 1987-12, 3015-10, CBCA, 2132-04, , 02335-3 #### [facility] ([id number]) [address], [address] [place] [address] Hematocrit (Bld) [Volume fraction] 37.7 % Normal 35-47 [facility] Comment on above: Performed By: #### C BRIA, 1987-12, 3015-10, CBCA, 2132-04, , 13285-7 #### [facility] ([id number]) [address] [address] Hemoglobin (Bld) [Mass/Vol] 12.6 g/dL Normal 11.7-15.5 [facility] Comment on above: Performed By: #### C BRIA, 1987-12, 3015-10, CBCA, 2132-04, , 12172-8 #### [facility] ([id number]) [address] [address] Lymphocytes (Bld) [#/Vol] 1.3 10*3/uL Normal 1.0-3.5 [facility] Comment on above: Performed By: #### C BRIA, 1987-12, 3015-10, CBCA, 2132-04, 80059-3, 39806-9 #### [facility] ([id number]) [address] [address] Lymphocytes/100 WBC (Bld) 17.9 % Normal [facility] Comment on above: Performed By: #### C BRIA, 1987-12, 3015-10, CBCA, 2132-04, , 78432-1 #### [facility] ([id number]) [address] [address] MCH (RBC) [Entitic mass] 28.8 pg Normal 27-34 [facility] Comment on above: Performed By: #### C BRIA, 1987-12, 3015-10, CBCA, 2132-04, 69822-8, 19006-1 #### [facility] ([id number]) [address], [address] [place] [address] MCHC (RBC) [Mass/Vol] 33.3 g/dL Normal 32-36 [facility] Comment on above: Performed By: #### C BRIA, 1987-12, 3015-10, CBCA, 2132-04, , 57299-2 #### [facility] ([id number]) [address], [address] [place] [address] MCV (RBC) [Entitic vol] 86 fL Normal 80-100 [facility] Comment on above: Performed By: #### C BRIA, 1987-12, 3015-10, CBCA, 2132-04, 38565-6, 48211-9 #### [facility] ([id number]) [address], [address] [address] Monocytes (Bld) [#/Vol] 0.4 10*3/uL Normal 0-0.9 [facility] Comment on above: Performed By: #### C BRIA, 1987-12, 3015-10, CBCA, 2132-04, , 30149-2 #### [facility] ([id number]) [address], [address] [address] Monocytes/100 WBC (Bld) 5.4 % Normal [facility] Comment on above: Performed By: #### C BRIA, 1987-12, 3015-10, CBCA, 2132-04, 28367-0, 67943-2 #### [facility] ([id number]) [address] [address] Neutrophils/100 WBC (Bld) 75.7 % Normal [facility] Comment on above: Performed By: #### C BRIA, 1987-12, 3015-10, CBCA, 2132-04, 95456-9, 81617-5 #### [facility] ([id number]) [address], [address] [place] [address] Platelet mean volume (Bld) [Entitic vol] 7.9 fL Normal 7-12 [facility] Comment on above: Performed By: #### Shawna FRASER, 1987-12, 3, CBCA, 2132-04, 34105-1, 52227-8 #### [facility] ([id number]) [address], [address] [place] [address] Platelets (Bld) [#/Vol] 281 10*3/uL Normal 150-450 [facility] Comment on above: Performed By: #### Shawna FRASER, 1987-12, 3015-10, CBCA, 2132-04, 07195-4, 72271-2 #### [facility] ([id number]) [address], [address] [place] [address] RBC COUNT 4.37 X10E12/L Normal 3.80-5.20 [facility] Comment on above: Performed By: #### C BRIA, 1987-12, 3015-10, CBCA, 2132-04, 80415-6, 61937-9 #### [facility] ([id number]) [address], [address] [place] [address] WBC (Bld) [#/Vol] 7.5 10*3/uL Normal 4.0-11.0 [facility] Comment on above: Performed By: #### Shawna FRASER, 1987-12, 3015-10, CBCA, 2132-04, 51181-0, 59424-0 #### [facility] ([id number]) [address], [address] [place] [address] COMPREHENSIVE METABOLIC PANE Cristian 04-05-2024 Albumin [Mass/Vol] 4.3 g/dL Normal 3.2-5.3 [facility] Comment on above: Performed By: #### C BRIA, 1987-12, 3015-10, CBCA, 2132-04, 64195-0, 31374-1 #### [facility] ([id number]) [address], [address] [place] [address] ALP [Catalytic activity/Vol] 92 U/L Normal 39-130 [facility] Comment on above: Performed By: #### C BRIA, 1987-12, 3015-10, CBCA, 2132-04, 87152-1, 96990-9 #### [facility] ([id number]) [address], [address] [place] [address] ALT [Catalytic activity/Vol] 20 U/L Normal 0-31 [facility] Comment on above: Performed By: #### C BRIA, 1987-12, 3015-10, CBCA, 2132-04, 30771-7, 90227-4 #### [facility] ([id number]) [address], [address] [place] [address] Anion gap [Moles/Vol] 10 mmol/L Normal 5-15 [facility] Comment on above: Performed By: #### C BRIA, 1987-12, 3015-10, CBCA, 2132-04, 10268-9, 27945-5 #### [facility] ([id number]) [address], [address] [place] [address] AST [Catalytic activity/Vol] 21 U/L Normal 0-41 [facility] Comment on above: Performed By: #### C BRIA, 1987-12, 3015-10, CBCA, 2132-04, 71153-3, 39276-2 #### [facility] ([id number]) [address], [address] [place] [address] Bilirubin [Mass/Vol] 0.4 mg/dL Normal 0.3-1.2 [facility] Comment on above: Performed By: #### C BRIA, 1987-12, 3015-10, CBCA, 2132-04, 39605-6, 96459-3 #### [facility] ([id number]) [address], [address] [place] [address] Calcium [Mass/Vol] 9.1 mg/dL Normal 8.5-10.5 [facility] Comment on above: Performed By: #### C BRIA, 1987-12, 3015-10, CBCA, 2132-04, 59549-4, 08461-3 #### [facility] ([id number]) [address], [address] [place] [address] Chloride [Moles/Vol] 103 mmol/L Normal 98-109 [facility] Comment on above: Performed By: #### C BRIA, 1987-12, 3015-10, CBCA, 2132-04, 75079-8, 31712-1 #### [facility] ([id number]) [address], [address] [place] [address] CO2 [Moles/Vol] 27 mmol/L Normal 22-32 [facility] Comment on above: Performed By: #### C BRIA, 1987-12, 3015-10, CBCA, 2132-04, 23534-1, 75748-5 #### [facility] ([id number]) [address], [address] [place] [address] Creatinine [Mass/Vol] 0.85 mg/dL Normal 0.40-1.00 [facility] Comment on above: Result Comment: METH OD TRACEABLE TO IDMS STANDARD Performed By: #### C BRIA, 1987-12, 3015-10, CBCA, 2132-04, 88236-6, 50914-3 #### [facility] ([id number]) [address], [address] [place] [address] GFR/1.73 sq M.predicted among non-blacks MDRD (S/P/Bld) [Vol rate/Area] 87 mL/min/{1.73_m2} Normal >59 [facility] Comment on above: Result Comment: Reported eGFR is based on the CKD-EPI 2020 equation that does not use a race coefficient. Performed By: #### C BRIA, 1987-12, 3015-10, CBCA, 2132-04, 04291-8, 26101-0 #### [facility] ([id number]) [address], [address] [place] [address] Glucose [Mass/Vol] 88 mg/dL Normal 65-99 [facility] Comment on above: Performed By: #### C BRIA, 1987-12, 3015-10, CBCA, 2132-04, 91121-7, 77823-8 #### [facility] ([id number]) [address], [address] [place] [address] Potassium [Moles/Vol] 4.0 mmol/L Normal 3.5-5.0 [facility] Comment on above: Performed By: #### C BRIA, 1987-12, 3015-10, CBCA, 2132-04, 90787-0, 42654-4 #### [facility] ([id number]) [address], [address] [place] [address] Protein [Mass/Vol] 7.1 g/dL Normal 6.0-8.0 [facility] Comment on above: Performed By: #### Shawna FRASER, 1987-12, 3015-10, CBCA, 2132-04, 95374-6, 84416-3 #### [facility] ([id number]) [address], [address] [place] [address] Sodium [Moles/Vol] 140 mmol/L Normal 134-146 [facility] Comment on above: Performed By: #### C BRIA, 1987-12, 3015-10, CBCA, 2132-04, 52825-1, 77535-7 #### [facility] ([id number]) [address], [address] [place] [address] Urea nitrogen [Mass/Vol] 15 mg/dL Normal 5-23 [facility] Comment on above: Performed By: #### C BRIA, 1987-12, 3015-10, CBCA, 2132-04, 99284-5, 09458-9 #### [facility] ([id number]) [address], [address] [place] [address] CRP [Mass/Vol]on 04-05-2024 C REACTIVE PROTEIN 1.0 mg/dL High 0.000-0.744 [facility] Comment on above: Performed By: #### C BRIA, 1987-12, 3015-10, CBCA, 2132-04, 80504-5, 31762-3 #### [facility] ([id number]) [address], [address] [place] [address] ESR Photometric method (Bld) [Velocity]on 04-05-2024 ESR, ERYTHROCYTE SEDIMENTATION RATE 22 mm/h High 0-20 [facility] Comment on above: Performed By: #### Shawna FRASER, 1987-12, 3015-10, CBCA, 2132-04, 09644-4, 63119-3 #### [facility] ([id number]) [address], [address] [place] [address] TSH Qnon 04-05-2024 TSH 1.95 uIU/mL Normal 0.49-4.67 [facility] Comment on above: Performed By: #### Shawna FRASER, 1987-12, 3015-10, CBCA, 2132-04, 74551-3, 80032-2 #### [facility] ([id number]) [address], [address] [place] [address] VITAMIN B12on 04-05-2024 Cobalamin (Vitamin B12) [Mass/Vol] 224 pg/mL Normal 180-914 [facility] Comment on above: Performed By: #### Shawna FRASER, 1987-12, 3, CBCA, 2132-04, 69219-8, 08505-9 #### [facility] ([id number]) [address] [place] [address], [address] [place] [address] Vitamin D+Metabolites [Mass/ Vol]on 04-05-2024 VITAMIN D 25 HYD TOT 18.4 ng/mL Low 30-100 [facility] Comment on above: Result Comment: Vitamin D status 25 [place] Vitamin D Deficiency <20 ng/mL Insufficiency 20-29 ng/mL Sufficiency 30-100 ng/mL Toxicity >100 ng/mL NOTE: A pediatric reference range has not been established by the factory superintendent of this kit. The [place] [employer] recommends a Vitamin D level of = or >20ng/mL in infants and children. Performed By: #### C , 1987-12, 3015-10, CBCA, 2132-04, 65986-7, 39935-9 #### [facility] ([id number]) [address] [place] [address], [address] [address] B. burgdorferi IgG+IgM Qn (S )on 02-19-2024 LYME TOTAL <0.2 Normal <0.9 [facility] Comment on above: Result Comment: Interpretation-------- <0.9 Negative 0.9 - 1.0 Equivocal >1.0 Positive No serological evidence of Borrelia infection.A non-reactive result does not exclude the possibility of Borrelia infection and cannot exclude early infection with B.burgdorferi. If Lyme borreliosis is suspected, a second sample should be collected and tested 2-4 weeks later. Performed By: #### C [facility], 60252-7, 54768-9, 1987-12, 3084-1, 35549-7, 89080-0, 72783-9 #### [facility] ([id number]) [address], [address] [place] [address] CBC AND AUTO DIFFon 02-19-20 24 ABSOLUTE BASOPHIL 0.0 X10E9/L Normal 0.0-0.2 [facility] Comment on above: Performed By: #### Shawna PAGAN, 94793-1, 66439-2, 1987-12, 308-, 36526-8, 34829-8, 79586-4 #### [facility] ([id number]) [address], [address] [place] [address] ABSOLUTE NEUTROPHIL 4.1 X10E9/L Normal 1.5-6.6 [facility] Comment on above: Performed By: #### Shawna PAGAN, 18563-1, 43969-8, 1987-12, 3083-, 95041-9, 71120-4, 80932-6 #### [facility] ([id number]) [address], [address] [place] [address] Basophils/100 WBC (Bld) 0.3 % Normal [facility] Comment on above: Performed By: #### Shawna PGAAN, 69533-6, 48823-5, 1987-12, 3083-, 70614-0, 55904-1, 65059-9 #### [facility] ([id number]) [address], [address] [place] [address] Eosinophils (Bld) [#/Vol] 0.1 10*3/uL Normal 0.0-0.4 [facility] Comment on above: Performed By: #### Shawna PAGAN, 87382-6, 47803-1, 1987-12, 3083-, 06485-6, 24895-1, 74409-4 #### [facility] ([id number]) [address], [address] [place] [address] Eosinophils/100 WBC (Bld) 1.1 % Normal [facility] Comment on above: Performed By: #### C EJ, 07284-3, 50490-1, 1987-12, 3084-1, 93803-1, 85170-2, 30905-3 #### [facility] ([id number]) [address], [address] [place] [address] Erythrocyte distribution width (RBC) [Ratio] 13.4 % Normal 11.5-15.0 [facility] Comment on above: Performed By: #### C EJ, 52126-8, 17244-2, 1987-12, 308-1, 21065-8, 05441-3, 78568-0 #### [facility] ([id number]) [address], [address] [place] [address] Hematocrit (Bld) [Volume fraction] 39.2 % Normal 35-47 [facility] Comment on above: Performed By: #### Shawna PAGAN, 70771-0, 18605-8, 1987-12, 308-1, 56077-7, 71947-8, 17603-7 #### [facility] ([id number]) [address], [address] [place] [address] Hemoglobin (Bld) [Mass/Vol] 12.9 g/dL Normal 11.7-15.5 [facility] Comment on above: Performed By: #### Shawna PAGAN, 91122-1, 28899-8, 1987-12, 3083-1, 10568-5, 80512-2, 71887-1 #### [facility] ([id number]) [address], [address] [place] [address] Lymphocytes (Bld) [#/Vol] 1.3 10*3/uL Normal 1.0-3.5 [facility] Comment on above: Performed By: #### Shawna PAGAN, 63369-6, 65016-4, 1987-12, 3084-1, 70089-6, 41819-0, 45195-9 #### [facility] ([id number]) [address], [address] [place] [address] Lymphocytes/100 WBC (Bld) 21.8 % Normal [facility] Comment on above: Performed By: #### Shawna PAGAN, 67796-1, 73158-4, 1987-12, 3084-1, 91885-5, 00712-4, 53074-6 #### [facility] ([id number]) [address], [address] [place] [address] MCH (RBC) [Entitic mass] 28.7 pg Normal 27-34 [facility] Comment on above: Performed By: #### Shawna PAGAN, 93632-1, 69296-1, 1987-12, 3083-, 00392-9, 51425-6, 58715-8 #### [facility] ([id number]) [address], [address] [place] [address] MCHC (RBC) [Mass/Vol] 33.0 g/dL Normal 32-36 [facility] Comment on above: Performed By: #### Shawna PAGAN, 57575-5, 38700-1, 1987-12, 3083-, 35125-3, 90301-6, 57869-4 #### [facility] ([id number]) [address], [address] [place] [address] MCV (RBC) [Entitic vol] 87 fL Normal 80-100 [facility] Comment on above: Performed By: #### Shawna PAGAN, 40577-1, 56731-6, 1987-12, 308-1, 77676-0, 80018-0, 89841-9 #### [facility] ([id number]) [address], [address] [place] [address] Monocytes (Bld) [#/Vol] 0.4 10*3/uL Normal 0-0.9 [facility] Comment on above: Performed By: ###Violeta Matos BCA, 34288-6, 57562-1, 1987-, 3084-1, 27315-2, 94968-9, 17151-3 #### [facility] ([id number]) [address], [address] [place] [address] Monocytes/100 WBC (Bld) 6.7 % Normal [facility] Comment on above: Performed By: #### C EJ, 43673-0, 29970-9, 1987-12, 308-1, 63600-8, 59132-2, 73065-0 #### [facility] ([id number]) [address], [address] [place] [address] Neutrophils/100 WBC (Bld) 70.1 % Normal [facility] Comment on above: Performed By: #### C EJ, 14622-0, 87257-4, 1987-12, 308-1, 00658-8, 61335-1, 29106-6 #### [facility] ([id number]) [address], [address] [place] [address] Platelet mean volume (Bld) [Entitic vol] 8.2 fL Normal 7-12 [facility] Comment on above: Performed By: #### C EJ, 61990-3, 73633-3, 1987-12, 308-1, 68740-6, 97968-5, 18856-2 #### [facility] ([id number]) [address], [address] [place] [address] Platelets (Bld) [#/Vol] 232 10*3/uL Normal 150-450 [facility] Comment on above: Performed By: #### C EJ, 09074-2, 70580-9, 1987-12, 308-1, 73093-0, 28762-2, 84290-3 #### [facility] ([id number]) [address], [address] [place] [address] RBC COUNT 4.51 X10E12/L Normal 3.80-5.20 [facility] Comment on above: Performed By: #### Shawna PAGAN, 96568-5, 78065-0, 1987-, 3084-1, 57293-4, 67926-0, 67026-3 #### [facility] ([id number]) [address], [address] [place] [address] WBC (Bld) [#/Vol] 5.9 10*3/uL Normal 4.0-11.0 [facility] Comment on above: Performed By: #### C EJ, 35490-2, 10329-6, 1987-, 308-1, 17320-7, 35892-6, 56162-3 #### [facility] ([id number]) [address], [address] [place] [address] CRP [Mass/Vol]on 02-19-2024 C REACTIVE PROTEIN 0.9 mg/dL High 0.000-0.744 [facility] Comment on above: Performed By: #### Shawna PAGAN, 29817-8, 31046-9, 1987-, 3084-1, 27956-8, 82499-1, 97603-0 #### [facility] ([id number]) [address] [place] [address] ESR Photometric method (Bld) [Velocity]on 02-19-2024 ESR, ERYTHROCYTE SEDIMENTATION RATE 26 mm/h High 0-20 [facility] Comment on above: Performed By: #### Shawna PAGAN, 12813-9, 38469-8, 1987-, 308-1, 52556-2, 33796-4, 73792-5 #### [facility] ([id number]) [address] [place] [address] HLA-B27 FC Ql (Bld/Tiss)on 0 02-19-2024 HLA-B27 TYPING Positive Normal [facility] Comment on above: Performed By: #### Shawna PAGAN, 13483-7, 97970-8, 1987-12, 3083-1, 33860-1, 53393-0, 00761-2 #### [facility] ([id number]) [address], [address] [place] [address] Nuclear Ab IA Ql (S)on 02-18 LANIE Screen w/reflex Negative [facility] Comment on above: Result Comment: Testing performed using multiplex flow immunoassay. Eleven different antigens associated with systemic autoimmune diseases (dsDNA,Sm,Sm/INTERNAL SECURITY MANAGER,INTERNAL SECURITY MANAGER,Chromatin, SSA,SSB,Nikki-1,Scl70,Ribo P,Centromere B) are included in this screening test. Performed By: #### C EJ, 41651-3, , 1987-12, 3083-, 12423-2, 27361-0, 16552-4 #### [facility] ([id number]) [address], [address] [place] [address] Rheumatoid factor Nephelomet ry Qn (S)on 02-19-2024 RHEUMATOID FACTOR <10 Normal <20 [facility] Comment on above: Performed By: #### C EJ, 85314-5, 94633-2, 1986-12, 3083-, 04780-7, 47617-6, 01267-2 #### [facility] ([id number]) [address], [address] [place] [address] URIC ACIDon 02-19-2024 Urate [Mass/Vol] 5.5 mg/dL Normal 2.6-7.2 [facility] Comment on above: Performed By: #### C EJ, 14818-7, , 1986-12, 3083-, 86589-0, 57714-4, 32544-7 #### [facility] ([id number]) [address], [address] [place] [address] MG MAMM SCREEN 3D VANDANA CADon 11-09-2022 MG MAMM SCREEN 3D VANDANA CAD Patient: CAITY WOODWARD Exam Date: 11/09/2022 : 1980 Gender:F Ordering : DR JOSÉ PEREZ . Admission #: [id number] Family : Order #: [id number] CLICK HERE TO VIEW EXAM RADIOLOGY REPORT PROCEDURE: MAMMOGRAM SCREENING 3D BILATERAL CAD COMPARISON: MG MAMM SCREEN 3D VANDANA CAD, 08/15/2021. INDICATIONS: Screening mammography Calculator Name NCI Breast Cancer Risk Assessment Tool 5 Year Breast Cancer Risk Not Reported. Lifetime Breast Cancer Risk Not Reported. Personal Breast Cancer No Personal Ovarian Cancer No Treatments None Family Cancers None LOCATION: [facility] BREAST COMPOSITION: Almost entirely fatty. FINDINGS: [...] MD on 11/09/2022 at 13:56 Normal [facility] COVID/FLU/RSV RT-PCRon 08-29 SARS-CoV-2 (COVID-19) RNA BERNABE+probe Ql (Unsp spec) Negative [facility] Other COVID/FLU/RSV RT-PCR Negative [facility] Other Quick Strepon 06-25-2022 S. pyogenes Org specific cx Ql (Throat) Positive [facility] Other Quick Strep [facility] Other SARS-CoV-2 (COVID-19) RNA NA A+probe Ql (Resp)on 06-25-2022 SARS-CoV-2 (COVID-19) RNA BERNABE+probe Ql (Unsp spec) Negative [facility] Other MRI Foot w/o Lefton 06-18-20 MRI [...] by Tanvir Ochoa on 06/18/2022 1353 Normal [facility] Oncology Consultant Vital Signs Date Time Vital Sign Value Performing Clinician Facility 08-29-2022 12:45-0500 Body height 172.72 cm Gillian Matson Other [facility] Other 08-29-2022 12:45-0500 Body mass index (BMI) [Ratio] 39.56 kg/m2 Gillian Matsno Other [facility] Other 08-29-2022 12:45-0500 Body temperature 98.6 [degF] Gillian aMtson Other [facility] Other 08-29-2022 12:45-0500 Body weight 118.03 kg Gillian Matson Other [facility] Other 08-29-2022 12:45-0500 Diastolic blood pressure 67 mm[Hg] Gillian Matson Other [facility] Other 08-29-2022 12:45-0500 Respiratory rate 18 /min Gillian Matson Other [facility] Other 08-29-2022 12:45-0500 SaO2% (BldA) [Mass fraction] 98 % Gillian Matson Other [facility] Other 08-29-2022 12:45-0500 Systolic blood pressure 116 mm[Hg] Gillian Chowdhuryault Other [facility] Other 06-25-2022 11:00-0400 Body height 172.72 cm Gillian Chowdhuryault Other [facility] Other 06-25-2022 11:00-0400 Body mass index (BMI) [Ratio] 36.49 kg/m2 Gillian Chowdhuryault Other [facility] Other 06-25-2022 11:00-0400 Body temperature 100.1 [degF] Gillian Matson Other [employer] Other 06-25-2022 11:00-0400 Body weight 108.86 kg Gillian Chowdhuryault Other [employer] Other 06-25-2022 11:00-0400 Respiratory rate 18 /min Gillian Chowdhuryault Other [employer] Other 06-25-2022 11:00-0400 SaO2% (BldA) [Mass fraction] 99 % Gillian Chowdhuryault Other [employer] Other Encounters Encounter Date Encounter Type Care Provider Facility Start: 05-29-2024 End: 05-29-2024 ambulatory DO Nelly Fishman Work Phone: [facility] Work Phone: Start: 05-29-2024 End: 05-29-2024 Departed Referred DO Nelly Fishman Work Phone: [facility] Start: 05-29-2024 End: 05-29-2024 ambulatory JOSÉ NELY Not Available Start: 05-08-2024 End: 05-08-2024 ambulatory JOSÉ NELY Not Available Start: 05-04-2024 End: 05-04-2024 ambulatory [facility] Start: 04-05-2024 End: 04-05-2024 ambulatory [facility] Start: 04-05-2024 End: 04-05-2024 ambulatory [facility] Start: 02-29-2024 End: 02-29-2024 ambulatory JOSÉ NELY Not Available Start: 02-28-2024 End: 02-28-2024 ambulatory JOSÉ NELY Not Available Start: 02-19-2024 End: 02-19-2024 ambulatory [facility] Start: 12-01-2023 End: 12-01-2023 ambulatory JOSÉ NELY Not Available Start: 11-23-2023 End: 11-23-2023 ambulatory ALMITA CRUZ Not Available Start: 11-09-2022 End: 11-10-2022 ambulatory JOSÉ NELY . Facility: Start: 08-29-2022 End: 08-29-2022 ambulatory Gillian Matson Other [employer] Other Start: 08-29-2022 Office outpatient visit 15 minutes Gillian Matson [facility] Start: 06-25-2022 End: 06-25-2022 ambulatory Gillian Matson Other [employer] Other Start: 06-25-2022 Office outpatient visit 25 minutes Gillian Matson [facility] Payers Date Payer Category Payer Self-pay 1980 Unknown [id number] 2.16.84 [id number] 1980 Unknown [id number] 2.16.8 [id number] 1981 Unknown [id number] 2.16.8 [id number] 1981 Unknown [id number] 2.16.8 [id number] 1981 Unknown [id number] 2.16.8 [id number] 1981 Unknown [id number] 2.16.84 [id number] 1981 Unknown [id number] 2.16.84 0.1.471664.3.579.2.1259 1981 Unknown [id number] 2.16.84 [id number] 1981 Unknown [id number] 2.16.84 0.1.398302.3.579.2.9 1981 Unknown [id number] 2.16.84 0.1.346709.3.579.2.9 1981 Unknown [id number] 2.16.84 [id number] 1981 Unknown [id number] 2.16.84 [id number] 1958 [facility] [id number] Social History Date Type Detail Facility Sex Assigned At [employer] Other Start: 1980 Sex Assigned At Female F [facility] Evaluation note 08-29-2022 Note Date & [...] Follow up with PCP if symptoms persist [employer] Other Evaluation note 06-25-2022 Note Date & [...] should improve within the next 4-7 days. [employer] Other Evaluation note Note Date & Type Note Facility Evaluation note [facility]: History general Narrative - Reported Note Date & Type Note Facility History general Narrative - Reported Type Surgical History appendectomy Hospitalization History childbirth x2 [facility] [employer] Other History general Narrative - Reported Note Date & Type Note Facility History general Narrative - Reported Type Medical History MIGRAINES Medical History PLANTAR FACIITIS Medical History DEPRESSION Surgical History appendectomy Hospitalization History childbirth x2 [employer] [facility] [employer] Other Summary Purpose Family History No Family [...] section and content) DATE CREATED AUTHOR 06/22/2022 [facility] DATE CREATED AUTHOR AUTHOR'S ORGANIZ ATION 11/16/2022 [facility] DATE CREATED AUTHOR AUTHOR'S ORGANIZ ATION 02/22/2024 [facility] DATE CREATED AUTHOR AUTHOR'S ORGANIZ ATION 05/06/2024 [facility] DATE CREATED AUTHOR AUTHOR'S ORGANIZ ATION 05/30/2024 [facility] DATE CREATED AUTHOR AUTHOR'S ORGANIZ ATION 06/03/2024 [facility] REASON FOR VISIT (unrecogniz ed [...] BE BASED ON THE PRIMARY CLINICAL RECORDS. [facility] [employer] [facility]. provides no warranty or guarantee of the accuracy or completeness of information in this document.
[2024-06-23 07:29] LABS: Basophils Percent Auto 0.3 % (0.2-2.0); Eosinophils Absolute Auto 0.1 10^3/uL (0.0-0.7); Eosinophils Percent Auto 1.2 % (0.9-7.0); Hematocrit 37.4 % (36.0-48.0); Hemoglobin 12.4 g/dL (12.0-16.0); Immature Granulocytes Abs Auto 0.02 10^3/uL (0.00-0.03); Immature Granulocytes Pct Auto 0.3 % (0.0-0.5); Lymphocytes Absolute Auto 1.6 10^3/uL (1.2-3.8); Lymphocytes Percent Auto 24.2 % (20.5-60.0); Mean Corpuscular HGB Conc 33.2 g/dL (29.9-35.2); Mean Corpuscular Hemoglobin 28.8 pg (26.7-34.0); Mean Corpuscular Volume 86.8 fL (81.0-99.0); Monocytes Absolute Auto 0.5 10^3/uL (0.3-0.8); Monocytes Percent Auto 6.9 % (1.7-12.0); Neutrophils Absolute Auto 4.4 10^3/uL (1.4-6.5); Neutrophils Percent Auto 67.1 % (43.0-75.0); Platelet Count 265 10^3/uL (150-450); Red Blood Count 4.31 10^6/uL (4.20-5.40); Red Cell Distribution Width 12.3 % (11.0-15.0); White Blood Count 6.5 10^3/uL (4.0-11.0)
[2024-06-23 07:49] LABS: HCG Quantitative <1 mIU/mL
[2024-06-23] MEDS: LACTATED RINGER'S SOLUTION 1,000 ML 50 ML IV ×2 (07:49→10:35)
[2024-06-23] MEDS: SCOPOLAMINE 1 MG/3 DAYS TRANSDERM PATCH 1 PATCH TD (08:40)
--- NOTE | 2024-06-23 11:00 | PM.ONB ---
Brief Operative Note Date of procedure: 06/23/24 Pre-op diagnosis general: aub, dysmenorrhea, desires permanent sterilization Post-op diagnosis: same as pre-op Procedure: NAME OF PROCEDURE: robotic assisted Laparoscopic bilateral salpingectomy, with Nilsa endometrial ablation with hysteroscopy PROCEDURE: The patient was taken back to the OR where she was prepped and draped in the normal sterile fashion after being placed in the dorsal lithotomy position, after being placed under general anesthesia without difficulty. a weighted speculum was then placed into the vagina. Pap and endometrial bx were performed without difficultyThe anterior lip was grasped with a single tooth tenaculum. The patient was then sounded to approximatley 9cm. The patient was gently sounded using Hegar dilators and the hysteroscope was passed through the cervix into the uterus where both ostia were seen. No gross evidence of polyps, fibroids or malignancy. The cervical length was noted to be 4cm. The Nilsa ablation apparatus was set to approximately 5cm in length. This was placed in through the cervix and into the uterus. After the seal was tested, at that time the total ablation of 120 seconds was performed with the Nilsa without difficulty. All instruments were removed from the vagina. A wet sponge stick was placed into the patient's vagina. Attention was then turned to the patient's abdomen, where a scalpel was used to make a small infraumbilical incision. The S retractors were then used to dissect the underlying layers until the fascia could be seen. The fascia was then grasped with Mariola clamps and tented up. A knife was then used to make a small incision to the fascia. The muscle was identified, at that time two sutures of #0 Vicryl on a GI needlewas then used and placed through the fascia. The peritoneum was then identified and entered bluntly. The 10-4 Brian was then placed into the patient's abdomen. This was confirmed with direct visualization of the bowel, using the laparoscope. The patient's abdomen was then insufflated using approximately 4 liters of CO2 gas. Survey of the patient's abdomen demonstrated normal appearing ovaries, uterus and tubes. A second and third lateral robotic ports, which was 8mm in size, was then placed laterally after incision was made in the skin under direct visualization. the robotic arms were engaged. The patient's tube on the patient's right side was identified. The tube was then tented up using a grasper. The ligasure was used to transect and coagulate the mesosalpingx from the fimbriated end to the insertion at the uterus, the tube was amputated and removed in its entirety.? Excellent hemostasis was noted. ?This was performed on the contralateral sideas well. The lateral ports were then moved under direct visualization with excellent hemostasis. The abdomen was deinsufflated. All instruments were removed from the patient's abdomen. The fascia was closed using the #0 Vicryl on GI needle. The skin was closed using 4-0 Vicryl subcuticularly. All instruments were removed from the patient's vagina as well. The patient was taken out of the dorsal lithotomy position and placed in the supine position and taken to recovery in stable condition. Sponge, lap and needle counts were correct x2. please note removal of paragard iud prior to ablation??? Anesthesia: JOSE Surgeon: V[facility] Worker: Ileana Hassan Estimated blood loss (mL): 5 Pathology: other (tubes) Condition: stable Disposition: PACU Urinary Catheter Management Urinary Catheter Management Urethral: Cath placed during this visit: no
[2024-06-23] MEDS: LACTATED RINGER'S SOLUTION 1,000 ML 150 ML IV (11:41)
[2024-06-23] MEDS: HYDROCODONE/ACET 5-325 MG TABLET 1 TAB PO (12:41)
== END 2024-06-23 13:20 | disposition home or self-care (01) ==
PROVIDERS: Visit Provider Obstetrics & Gynecology
PROC: (CPT 840; principal; 2024-06-23 08:40)
DX: Z30.2 Encounter for sterilization (principal); R10.2 Pelvic and perineal pain; N92.0 Excessive and frequent menstruation with regular cycle; N93.9 Abnormal uterine and vaginal bleeding, unspecified; N83.8 Other noninflammatory disorders of ovary, fallopian tube and broad ligament; Z87.891 Personal history of nicotine dependence; E66.01 Morbid (severe) obesity due to excess calories; Z68.41 Body mass index [BMI] 40.0-44.9, adult; M79.7 Fibromyalgia
CPT/HCPCS: 58563; 58661; 36415; 84702; 85025; 88302; J0131; J1100; J1171; J1885; J2250; J2405; J2704; J3010

== ENCOUNTER 2024-11-28 14:43 | Outpatient (REF) | payer BC, SELFPAY | END 2024-11-28 14:44 | disposition home or self-care (01) | LOC: LAB 14:43 | PROVIDERS: Visit Provider Obstetrics & Gynecology | DX: Z01.419 Encounter for gynecological examination (general) (routine) without abnormal findings (principal) | CPT/HCPCS: 87624; 88175 ==